=== PATIENT | male | born 1970 | race Caucasian/White ===

== ENCOUNTER 2019-11-01 11:31 | Outpatient (CLI) | payer BC, SELFPAY ==
--- NOTE | ~2019-11-01 | XR_ITS ---
EXAMINATION: XR hand LT min 3V DATE: 11/01/2019 11:50 INDICATION: Left hand pain. TECHNIQUE: 3 views of left hand were obtained. COMPARISON: Left hand radiographs 04/16/2017 FINDINGS: Bone alignment is normal. No fracture. There is mild osteoarthritis of first carpometacarpa l joint and first, second, and fourth metacarpophalangeal joints. There is mild osteoarthritis of mos t of the interphalangeal joints. There is severe osteoarthritis of third distal interphalangeal joint and moderate osteoarthritis of second distal interphalangeal joint. IMPRESSION: 1. Polyarticular osteoarthritis. Reviewed, dictated and finalized at location A.
== END 2019-11-01 11:32 | disposition home or self-care (01) ==
PROVIDERS: PCP Family Medicine; Visit Provider Family Medicine
DX: M79.642 Pain in left hand (principal); M79.645 Pain in left finger(s); M79.89 Other specified soft tissue disorders; M19.042 Primary osteoarthritis, left hand
CPT/HCPCS: 73130

== ENCOUNTER 2020-10-22 13:15 | Outpatient (CLI) | payer BC, SELFPAY ==
--- NOTE | ~2020-10-22 | XR_ITS ---
EXAMINATION: XR knee RT min 4V DATE: 10/22/2020 13:40 INDICATION: Right knee pain. TECHNIQUE: 4 views of right knee were obtained. COMPARISON: None. FINDINGS: There is varus angulation at the knee. No fracture. There is severe osteoarthritis of media l compartment, moderate osteoarthritis of patellofemoral compartment, and mild osteoarthritis of late ral compartment. No knee joint effusion. IMPRESSION: 1. Severe right knee osteoarthritis. Reviewed, dictated and finalized at location A.
--- NOTE | ~2020-10-22 | XR_ITS ---
EXAMINATION: XR knee LT min 4V DATE: 10/22/2020 13:39 INDICATION: Left knee pain. TECHNIQUE: 4 views of left knee were obtained. COMPARISON: None. FINDINGS: Bone alignment is normal. No fracture. There is severe osteoarthritis of medial compartment and mild osteoarthritis of lateral and patellofemoral compartments. No knee joint effusion. IMPRESSION: 1. Severe left knee osteoarthritis. Reviewed, dictated and finalized at location A.
== END 2020-10-22 13:16 | disposition home or self-care (01) ==
PROVIDERS: PCP Family Medicine; Visit Provider Family Medicine
DX: M25.561 Pain in right knee (principal); M25.562 Pain in left knee; M17.0 Bilateral primary osteoarthritis of knee
CPT/HCPCS: 73564

== ENCOUNTER 2020-11-02 13:06 | Outpatient (CLI) | payer BC, SELFPAY ==
--- NOTE | ~2020-11-02 | XR_ITS ---
EXAMINATION: XR lumbar spine 2-3V DATE: 11/02/2020 13:23 INDICATION: Low back pain. TECHNIQUE: 3 views of lumbar spine were obtained. COMPARISON: None. FINDINGS: There is 5 mm retrolisthesis of L3 on L4. There is mild chronic anterior wedging of T12 and L1 vertebral bodies. There are endplate osteophytes at all levels. There is mildly decreased disc he ight at L1-L2, L2-L3, and L3-L4. There is multilevel mild to moderate facet joint osteoarthritis. The re is severe facet joint osteoarthritis on the right at L5-S1. IMPRESSION: 1. Mild lumbar spondylosis. Reviewed, dictated and finalized at location B. IMPRESSION: 1. Mild lumbar spondylosis.
== END 2020-11-02 13:07 | disposition home or self-care (01) ==
LOC: ANHIMG 13:09
PROVIDERS: PCP Family Medicine; Visit Provider Physician Assistant
DX: M47.817 Spondylosis without myelopathy or radiculopathy, lumbosacral region (principal)
CPT/HCPCS: 72100

== ENCOUNTER → 2020-12-31 06:44 | Outpatient (CLI) | payer BC, SELFPAY ==
[2020-12-31 16:50] LABS: SARS-CoV-2 RNA PCR Negative
== END ==
PROVIDERS: PCP Family Medicine; Visit Provider Family Medicine
DX: Z78.9 Other specified health status (principal); Z20.822 Contact with and (suspected) exposure to COVID-19
CPT/HCPCS: C9803; U0003; U0005

== ENCOUNTER 2021-06-10 07:46 | Outpatient (CLI) | payer BC, SELFPAY ==
--- NOTE | ~2021-06-10 | MR_ITS ---
EXAMINATION: MR brain/brain stem wo/w con DATE: 06/10/2021 08:55 INDICATION: Worsening migraine headache. TECHNIQUE: Magnetic resonance imaging (MRI) of the brain and brainstem was performed without and with 20 mL MultiHance intravenous contrast. Sequences included sagittal and axial T1-weighted FSE, axial diffusion-weighted FS EPI, axial T2*-weighted GRE, axial T2-weighted FLAIR Propeller, and axial T2-we ighted Propeller. Postcontrast sequences included axial and coronal T1-weighted FSE. Apparent diffusi on coefficient (ADC) maps were created. COMPARISON: None. FINDINGS: There are scattered areas of nonspecific increased T2-weighted signal intensity in the cere bral white matter, which is within normal limits for the patient's age. There is no intracranial hemo rrhage, acute infarction, or abnormal intracranial mass lesion. The ventricles are normal in size. Th ere is mild mucosal thickening in the paranasal sinuses. The orbits are normal. The mastoid air cells are normal. IMPRESSION: 1. Normal aging brain. Reviewed, dictated and finalized at location A. 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 Normal aging brain.
[2021-06-10 08:24] LABS: Estimated Glomerular Filt Rate > 60
== END 2021-06-10 07:47 | disposition home or self-care (01) ==
LOC: ANHIMG 07:49
PROVIDERS: PCP Family Medicine; Visit Provider Physician Assistant
DX: G43.009 Migraine without aura, not intractable, without status migrainosus (principal)
CPT/HCPCS: 70553; A9577

== ENCOUNTER 2022-01-13 00:29 | Day surgery (SDC) | payer BC, SELFPAY ==
[2021-12-31 13:07] VITALS: BMI 27.7
[2022-01-13 06:50] VITALS: BP 135/94; PULSE 64; RESP 16; TEMP 36.6; O2SAT 100; BMI 27.8
[2022-01-13] MEDS: LACTATED RINGERS 1,000 ML 150 ML IV CONT (07:01)
--- NOTE | 2022-01-13 07:51 | WPDANESEPPF ---
Anes - Initial Pre Proc Eval Procedure: Operation Date: 01/13/22 08:00 Proposed Procedures p Screening Colonoscopy - Domenic Joe MD Date/Time: 01/13/22 07:51 Surgeon: Domenic Joe MD Pre Op Diagnosis: neoplasm screening Patient Data Age: 52 Gender: M Height: 1.88 m Weight: 98.4 kg Last Vital Signs Temp 36.6 C 01/13/22 06:50 Pulse 64 01/13/22 06:50 Resp 16 01/13/22 06:50 BP 135/94 H 01/13/22 06:50 Pulse Ox 100 01/13/22 06:50 O2 Del Method Room Air 01/13/22 06:50 Allergies Allergy/AdvReac Type Severity Reaction Status Date / Time No Known Allergies Allergy Mild Verified 01/13/22 06:48 Home Medications Medication Instructions Recorded Confirmed Type metronidazole 0.75 % topical gel 1 applic topical BID 05/20/19 01/13/22 History meloxicam 15 mg tablet See Rx Instructions .Route 08/12/21 01/13/22 Rx .COMPLEX #30 tabs omeprazole 20 mg capsule,delayed 20 mg PO DAILY #90 caps 09/19/21 01/13/22 Rx release tramadol 50 mg tablet 50 mg PO Q6H PRN pain #28 tabs 09/20/21 01/13/22 Rx trazodone 150 mg tablet 150 mg PO QHS #90 tabs 09/20/21 01/13/22 Rx rizatriptan 10 mg tablet See Rx Instructions PO .COMPLEX 12/31/21 01/13/22 History PRN Migraine Headache Patient hx anesthesia problems: none Family hx anesthesia problems: none Results Review: All pre-operative results and documents have been reviewed as part of the pre-operative evaluation. [facility] Past Medical History Medical History (Updated 01/13/22 @ 07:53 by Fredis Davis MD) Arthritis Gastro-esophageal reflux disease without esophagitis Hypercholesteremia Migraine without aura, not intractable, without status migrainosus Surgical History Surgical History History of appendectomy (~1989) History of hernia repair (~2016) History of hernia repair (~1991) History of knee surgery (~04/22/16) History of knee surgery (~04/22/15) Family History Family History Mother Family history of elevated blood lipids Family history of cardiovascular disease Family history of hypothyroidism Family history of atrial fibrillation Family history of thyroid disease Other Family history of hypercholesterolemia Social History Social History Alcohol intake: current Drinks per week: 12 Alcohol use details: 6-12 beers per week Living arrangements: with family Spiritual care concerns: No Anes - Eval Final PreProcedure Day of Procedure 01/13/22 07:51 Patient weight: overweight Heart: regular rate and rhythm Lungs: clear to auscultation and normal air movement Airway: Mallampati scale class II Neurological: alert and oriented Last oral intake: >/= 8 hours ASA classification: II Emergent: no Anesthetic plan: proceed Anesthesia type and monitoring: general GIVS Results Review: All pre-operative results and documents have been reviewed as part of the pre-operative evaluation. Informed Consent: The patient's anesthetic plan and its attendant risks and benefits were discussed with the patient/family/POA. Questions were solicited and answers provided to the satisfaction of the patient/family/POA.
--- NOTE | 2022-01-13 07:53 | PM.HPGS ---
History of Present Illness History of Present Illness Consent: Risks, benefits, and alternatives have been discussed and questions answered. Patient agrees to proceed with procedure. Chief complaint: neoplasm screening Narrative: Eamon Murray is a 52 year old male here for first screening colonoscopy Review of Systems Constitutional: Constitutional: Denies headache(s) and Denies weakness Eyes: Eyes: Denies blurry vision ENT: Reports Normal hearing present, Denies headache(s) and Denies neck pain Cardiovascular: Cardiovascular: Denies chest pain and Denies dyspnea Respiratory: Respiratory: Denies dyspnea Gastrointestinal: Gastrointestinal: Reports no additional gastrointestinal complaints Genitourinary: Genitourinary: Denies dysuria Musculoskeletal: Musculoskeletal: Denies neck pain Integumentary/Breasts: Skin/Breast: Denies dry skin Neurologic: Reports Normal hearing present, Denies headache(s) and Denies weakness Psychiatric: Psychiatric: Denies anxiety Endocrine: Endocrine: Denies change in body appearance Hematologic/Lymphatic: Hematologic/Lymphatic: Denies easy bleeding Allergic/Immunologic: Allergic/Immunologic: Denies urticaria PMFSH Past Medical History Medical History (Updated 01/13/22 @ 07:53 by Fredis Davis MD) Arthritis Gastro-esophageal reflux disease without esophagitis Hypercholesteremia Migraine without aura, not intractable, without status migrainosus Surgical History Surgical History History of appendectomy (~1989) History of hernia repair (~2016) History of hernia repair (~1991) History of knee surgery (~04/22/16) History of knee surgery (~04/22/15) Family History Family History Mother Family history of elevated blood lipids Family history of cardiovascular disease Family history of hypothyroidism Family history of atrial fibrillation Family history of thyroid disease Other Family history of hypercholesterolemia Social History Social History Alcohol intake: current Drinks per week: 12 Alcohol use details: 6-12 beers per week Living arrangements: with family Spiritual care concerns: No Meds Home Medications and Allergies Home Medications Medication Instructions Recorded Confirmed Type metronidazole 0.75 % topical gel 1 applic topical BID 05/20/19 01/13/22 History meloxicam 15 mg tablet See Rx Instructions .Route 08/12/21 01/13/22 Rx .COMPLEX #30 tabs omeprazole 20 mg capsule,delayed 20 mg PO DAILY #90 caps 09/19/21 01/13/22 Rx release tramadol 50 mg tablet 50 mg PO Q6H PRN pain #28 tabs 09/20/21 01/13/22 Rx trazodone 150 mg tablet 150 mg PO QHS #90 tabs 09/20/21 01/13/22 Rx rizatriptan 10 mg tablet See Rx Instructions PO .COMPLEX 12/31/21 01/13/22 History PRN Migraine Headache Allergies Allergy/AdvReac Type Severity Reaction Status Date / Time No Known Allergies Allergy Mild Verified 01/13/22 06:48 Vital Signs Vital Signs - 24 hr 01/13/22 06:50 Temperature 97.8 F Pulse Rate 64 Respiratory Rate 16 Blood Pressure 135/94 H Pulse Oximetry 100 Oxygen Delivery Room Air Exam Const: General: comfortable and no acute distress HENMT: General nose exam: Normal nares present Eyes: General: appearance normal, both eyes and all related structures Neck: Neck: no JVD Resp: Auscultation: clear to auscultation bilaterally Cardio: Rate: regular rate Rhythm: regular rhythm GI: Inspection: non-distended GI Palp: Yes Soft to palpation Skin: General skin exam: normal color Neuro: General: gait normal Speech: normal speech Extrem: General: normal to inspection Psych: Mental Status: mental status grossly normal Assessment and Plan Assessment and plan (1) Screening for colon cancer: Code(s): Z12.11 - Encounter for scre
[2022-01-13 08:22] VITALS: BP 106/69; PULSE 63; RESP 17; O2SAT 100
[2022-01-13 08:32] VITALS: BP 111/71; PULSE 62; RESP 18; O2SAT 100
[2022-01-13 08:42] VITALS: BP 122/81; PULSE 61; RESP 17; O2SAT 100
== END 2022-01-13 08:50 | disposition home or self-care (01) ==
PROVIDERS: PCP Family Medicine; Visit Provider Internal Medicine Gastroenterology
PROC: 0DJD8ZZ Inspection of Lower Intestinal Tract, Via Natural or Artificial Opening Endoscopic (ICD-10-PCS; CPT 45378; principal; 2022-01-13 08:00)
DX: Z12.11 Encounter for screening for malignant neoplasm of colon (principal); K64.8 Other hemorrhoids; M19.90 Unspecified osteoarthritis, unspecified site; K21.9 Gastro-esophageal reflux disease without esophagitis; E78.00 Pure hypercholesterolemia, unspecified
CPT/HCPCS: 45378; J2704; J7120

== ENCOUNTER 2022-04-25 10:13 | Observation (INO) | payer BC, SELFPAY ==
--- NOTE | ~2022-04-25 | CT_ITS ---
EXAMINATION: CT abdomen pelvis w con DATE: 04/25/2022 13:16 INDICATION: Generalized abdominal pain. Diarrhea. TECHNIQUE: Computed tomography (CT) of the abdomen and pelvis was performed with 100 mL Omnipaque 350 intravenous contrast. Automated exposure control and iterative reconstruction technique were employe d. The dose-length product was 668.72 mGy-cm. COMPARISON: None. FINDINGS: The visualized portions of the lung bases demonstrate mild atelectasis. No pleural effusion . The heart size is normal. No pericardial effusion. The liver, gallbladder, spleen, pancreas, adrena l glands, and kidneys are normal. The prostate is moderately enlarged. The appendix is not visualized . There are multiple dilated loops of small bowel without focal transition point. There are surgical changes of right inguinal hernia repair. There are no pathologically enlarged lymph nodes. There is p hysiologic fluid in the pelvis. There is mild thoracolumbar spondylosis. IMPRESSION: 1. Dilated small bowel without focal transition point, likely adynamic ileus. Reviewed, dictated and finalized at location A.
[2022-04-25 10:24] VITALS: BP 130/78; PULSE 95; RESP 16; TEMP 36.6; O2SAT 99
[2022-04-25 10:40] LABS: Basophils Percent Auto 0.4 % (0.2-1.2); Eosinophils Absolute Auto 0.2 K/mm3 (0-0.3); Eosinophils Percent Auto 3.7 % (0-4.4); Hematocrit 45.1 % (42.0-52.0); Hemoglobin 14.1 g/dL (14.0-18.0); Immature Granulocyte Absolute 0.01 K/mm3 (0.00-0.031); Immature Granulocyte Percent A 0.2 % (0-0.5); Lymphocytes Absolute Auto 0.68 K/mm3 (0.9-3.2); Lymphocytes Percent Auto 13.8 % (18.3-44.2); Mean Corpuscular HGB Conc 31.3 g/dl (32-36); Mean Corpuscular Volume 80.1 fl (80-100); Mean Platelet Volume 8.9 fl (7.4-10.4); Monocytes Absolute Auto 0.7 K/mm3 (0.1-0.6); Monocytes Percent Auto 13.2 % (2.6-8.5); Neutrophils Absolute Auto 3.4 K/mm3 (1.3-6.7); Neutrophils Percent Auto 68.7 % (45.5-73.1); Platelet Count Result 184 k/mm3 (150-375); Red Blood Count 5.63 M/mm3 (4.6-6.20); White Blood Count 4.9 K/mm3 (4.5-10.0)
[2022-04-25 10:44] LABS: Appearance Urine Clear (Clear); Bilirubin Urine 1+ (Negative); Blood Urine Negative (Negative); Color Urine Yellow (Yellow); Glucose Urine UA Negative (Negative); Ketones Urine 1+ mg/dL (Negative); Leukocyte Esterase Ur Negative LEU/UL (Negative); Nitrate Urine Negative (Negative); Protein Urine 1+ mg/dL (Negative); Specific Grav Ur 1.025 (1.001-1.035); Urobilinogen Urine 0.2 mg/dL (<2.0)
[2022-04-25 10:46] LABS: Add Urine Microscopic? YES
[2022-04-25 10:53] LABS: WBC Urine 0-3 /hpf (0-3)
[2022-04-25 10:58] LABS: RBC Urine 0-2 /hpf (0-2)
[2022-04-25 11:00] LABS: Mucus Urine Heavy /lpf
[2022-04-25 11:01] LABS: Squamous Epithelial Cell Urine Occasional /hpf (Few)
[2022-04-25 11:02] LABS: Alanine Aminotransferase 21 U/L (6-50); Albumin Level 4.4 g/dL (3.5-5.1); Alkaline Phosphatase 82 U/L (38-126); Anion Gap 11 mmol/L (8-16); Aspartate Amino Transferase 29 U/L (17-59); Bilirubin,Total 0.9 mg/dL (0.2-1.3); Blood Urea Nitrogen 15 mg/dL (9-20); Calcium 8.9 mg/dL (8.4-10.2); Carbon Dioxide 27 mmol/L (22-30); Chloride 100 mmol/L (98-107); Estimated CRCL calculation 83 ml/min; Estimated Glomerular Filt Rate > 60; Glucose 101 mg/dL (65-110); Lipase 51 U/L (23-300); Potassium 4.2 mmol/L (3.4-5.0); Sodium 138 mmol/L (137-145)
--- NOTE | 2022-04-25 12:57 | ED.GENADULT ---
HPI - General Adult General Chief complaint: Abdominal Pain Stated complaint: diarrhea, abd pain Time Seen by Provider: 04/25/22 11:20 History of Present Illness HPI narrative: This is a 52-year-old male presenting ED with chief complaint of abdominal pain. Patient states that pain started on Thursday. He describes as a diffuse sharp pain senna 10 intensity and comes and goes. He says he felt pain like this before when his appendix had ruptured he required a surgical cleanout. There are no exacerbating relieving factors. Patient has had multiple episodes of nonbloody diarrhea per day. He denies fever, chills, urinary symptoms, chest pain. Patient did take a recent course of antibiotics, Keflex, for a soft tissue infection. Related Data Home Medications Medication Instructions Recorded Confirmed metronidazole 0.75 % topical gel 1 applic topical BID 05/20/19 04/23/22 rizatriptan 10 mg tablet See Rx Instructions PO .COMPLEX 12/31/21 04/23/22 PRN Migraine Headache Allergies Allergy/AdvReac Type Severity Reaction Status Date / Time No Known Allergies Allergy Mild Verified 04/25/22 11:30 Review of Systems Review of Systems: CONSTITUTIONAL: Denies night sweats. EYES: No eye pain ENT: Denies rhinorrhea CARDIOVASCULAR: Denies palpitations RESPIRATORY: Denies hemoptysis GASTROINTESTINAL: Denies hematemesis GENITOURINARY: Denies hematuria. SKIN: Denies rash MUSCULOSKELETAL: Denies myalgia. NEUROLOGIC: Denies weakness. PSYCHIATRIC: Denies delusions PMFSH Past Medical History Medical History Arthritis Gastro-esophageal reflux disease without esophagitis Hypercholesteremia Migraine without aura, not intractable, without status migrainosus Surgical History Surgical History History of appendectomy (~1989) History of hernia repair (~2016) History of hernia repair (~1991) History of knee surgery (~04/22/16) History of knee surgery (~04/22/15) Family History Family History Mother Family history of elevated blood lipids Family history of cardiovascular disease Family history of hypothyroidism Family history of atrial fibrillation Family history of thyroid disease Other Family history of hypercholesterolemia Social History Social History Smoking status: Never smoker Alcohol intake: current Drinks per week: 12 Alcohol use details: 6-12 beers per week Has the Lack of Transportation Kept You From Medical Appointments or From Getting Medications?: No Within the Past 12 Months, Were You Worried Whether Your Food Would Run Out Before You Got Money to Buy More?: Never True What is Your Housing Situation Today?: I Have Housing Are You Worried That in the Next 2 Months, You May Not Have Your Own Housing to Live In?: No Do You Have Trouble Paying Your Heating Or Electricity Bill?: No Do You Have Trouble Paying For Medicines?: No Are You Currently Unemployed and Looking for Work?: No Highest Level of Education Completed: Bachelor's Degree Do You Have Trouble With Childcare or the Care of a Family Member?: No Spiritual care concerns: No Exam Narrative: APPEARANCE: No apparent distress. Head atraumatic. EYES: PERRLA/EOMI, NOSE: Normal no drainage NECK: Supple, Trachea midline RESPIRATORY: CTAB, No increased work of breathing. CARDIOVASCULAR: S1S2 appreciated ABDOMINAL: abdomen is soft with diffuse tenderness, well-healed surgical scars over the abdomen. MUSCULOSKELETAl: No obvious deformities NEURO: Alert. Moving 4/4 extremities SKIN:: Warm, dry. Normal color PSYCHIATRIC: Normal affect Course Vital Signs Vital signs: Vital Signs Temperature 97.8 F 04/25/22 10:24 Pulse Rate 95 04/25/22 10:24 Respiratory Rate 16 04/25/22 10:24 Blood Pressure 130/78
[2022-04-25 13:32] VITALS: O2SAT 90
[2022-04-25 13:33] VITALS: BP 126/70; PULSE 83; RESP 18; O2SAT 97
[2022-04-25] MEDS: SODIUM CHLORIDE 0.9% IV 2,000 ML 999 ML IV CONT (15:31)
[2022-04-25] MEDS: HYDROmorphone HCL INJ (*CRX) 1 MG/ML SYR 0.5 MG IV PUSH (15:31)
[2022-04-25 15:34] VITALS: BP 126/81; PULSE 82; RESP 14; O2SAT 98
[2022-04-25] MEDS: metroNIDAZOLE 500 MG/ISO 100ML 500 MG/100 ML BAG 100 MG IVPB (15:51)
--- NOTE | 2022-04-25 16:25 | WPDGICN ---
Assessment and Plan Assessment and plan (1) Severe diarrhea: Code(s): K52.9 - Noninfective gastroenteritis and colitis, unspecified Status: Acute Assessment and Plan: stool has been sent for C difficile toxin. Results are not yet in the record. Given the fact that this diarrhea began after 12 days of oral antibiotics, I think that C difficile colitis would be the most likely etiology. Surprisingly, the CT scan does not show colitis. He should be hospitalized for rehydration. Resting his got will help with his abdominal pain. (2) Skin infection: Code(s): L08.9 - Local infection of the skin and subcutaneous tissue, unspecified Status: Acute Assessment and Plan: After cryotherapy for skin lesions, he developed infection in 2 of them. He took Keflex for a total of 12 days. (3) Adynamic ileus: Code(s): K56.0 - Paralytic ileus Status: Acute Assessment and Plan: The only significant finding on CT scan is suggestion of ileus. Because he has active bowel sounds, I do not think he has an ileus. I think we can try him on clear liquids. GI Consult Note Consult date/time: 04/25/22 16:25 HPI: Eamon Murray is a 52 year old male who presents to the emergency room with severe watery diarrhea. He states that he developed diarrhea Thursday evening, having 4 loose stools within an hour. He had 6 more during the night and 5 more the next morning. He continues to have severe watery diarrhea. There has been no blood in his stools. He has been getting pains in his abdomen since Thursday evening. At times it is so tight and severe that it feels like when he had appendicitis. He has been running a fever, up to 101.4. He has not had chills. He has had some nausea and has been afraid to eat but not vomiting. He is just finishing a 2 week course of antibiotics for skin infection. He had cryotherapy of skin lesions about 3 weeks ago. He noticed drainage from 2 of them, 1 on his cheek and 1 on his thigh. After 7 days of Keflex the drainage persisted and the prescription was refilled. He will have finish it today, but when he developed diarrhea and he called his primary care physician on Thursday he was told to discontinue it. A stool specimen was sent for C difficile toxin. It looks as though it is still pending but ER physician told me that was negative. He has no history of chronic gastrointestinal problems. He in fact just had a colonoscopy by Dr. Negrete a couple of months ago. Was negative. He has had no problems with eating in the past. He did not lose 14 lb just since the diarrhea began 3 days ago. Review of Systems Review of Systems: All systems reviewed & are unremarkable except as noted in HPI and below PMFSH Past Medical History Medical History Arthritis Gastro-esophageal reflux disease without esophagitis Hypercholesteremia Migraine without aura, not intractable, without status migrainosus Surgical History Surgical History History of appendectomy (~1989) History of hernia repair (~2016) History of hernia repair (~1991) History of knee surgery (~04/22/16) History of knee surgery (~04/22/15) Family History Family History Mother Family history of elevated blood lipids Family history of cardiovascular disease Family history of hypothyroidism Family history of atrial fibrillation Family history of thyroid disease Other Family history of hypercholesterolemia Social History Social History Smoking status: Never smoker Alcohol intake: current Drinks per week: 12 Alcohol use details: 6-12 beers per week Has the Lack of Transportation Kept You From Medical Appointments or From Getting Medications?: No Within the Past 12 Mon
[2022-04-25] MEDS: LACTATED RINGERS 1,000 ML 125 ML IV CONT (17:39)
[2022-04-25 18:10] VITALS: BP 118/80; PULSE 64; RESP 14; TEMP 36.7; O2SAT 100; BMI 28.3
--- NOTE | 2022-04-25 18:12 | ADMGEN ---
This patient, Eamon Murray, was admitted to 2 Medical Room 241-01. Patient/family oriented to hospital policies and general routines including ID bracelet, bed and alarms, visiting hours, pain management, procedures, bathroom and other care routines, personal items, smoking policy, room service/diet, and visiting hours. Information on how to activate the Rapid Response Team has been discussed. Patient/Family are encouraged to report perceived risks to care and to ask questions if they do not understand what they are told or what they should do.
[2022-04-25 19:55] LABS: Toxigenic C. Diff POSITIVE (NEGATIVE)
--- NOTE | 2022-04-25 19:55 | PC.NURSE ---
lab called pt c-diff + informed Dori WHITMORE provider. C-diff isolation started now.
--- NOTE | 2022-04-25 20:28 | PC.NURSE ---
jose Meadows NP pt requiring pain medication.
[2022-04-25] MEDS: traMADol HCL (*CRX) 25 MG TABLET PO (20:55)
--- NOTE | 2022-04-25 21:07 | PC.NURSE ---
informed Dori [facility] INFORMATION SPECIALIST pt tested c. diff + pt to stated Flagyl and PO vancomycin Dori to see pt and place orders.
[2022-04-25 21:46] VITALS: BP 122/75; PULSE 62; RESP 21; TEMP 36.2; O2SAT 100
[2022-04-25] MEDS: traZODone HCL 50 MG TABLET 150 MG PO (21:52)
[2022-04-25] MEDS: traMADol HCL (*CRX) 50 MG TABLET PO (23:09)
--- NOTE | 2022-04-25 23:10 | PC.NURSE ---
pt reported liquid watery stool starting again, abt started for + c.diff sample this shift.
--- NOTE | 2022-04-25 23:56 | PC.NURSE ---
Dori DIRECTOR OF EMERGENCY NURSING to place Bentyl order r/t pt abdominal pain
[2022-04-26] MEDS: metroNIDAZOLE 500 MG/ISO 100ML 500 MG/100 ML BAG 100 MG IVPB (00:22)
[2022-04-26] MEDS: VANCOMYCIN ORAL 125 MG/2.5 ML SYRUP PO ×4 (00:22→18:59)
--- NOTE | 2022-04-26 00:49 | PM.IMHP ---
H&P: HPI History of Present Illness Date/Time: 04/25/22 2300 Chief Complaint: Abdominal pain Narrative: this is a 52-year-old male patient who has a complaint of abdominal pain. The patient stated that the pain started on Thursday stated that it was a sharp pain with a 10/10 intensity that comes and goes. He says that he felt pain like this before when his appendix ruptured many years ago. There was no exacerbating or relieving factors. The patient had multiple episodes of nonbloody diarrhea each day. The patient stated that he had a recent course of antibiotics due to soft tissue infection he had completed that and then got another weeks worth of Keflex. The patient stated that he had some skin lesions removed in the became infected that is why he was on the Keflex. GI was consulted. Abdominal pelvis CT was read as dilated small bowel without focal transition point likely adynamic ileus. Stools cultures were obtained and the patient was found to be positive for C diff. Patient had no white count. The patient was started on IV fluids. He was given Flagyl, tramadol and Dilaudid in the Emergency room. The patient is being admitted to observation status on the date of service of 04/26/2022. Review of Systems Review of Systems: All systems reviewed & are unremarkable except as noted in HPI and below Constitutional: Constitutional: Reports as per HPI and Reports no additional constitutional complaints Eyes: Eyes: Reports as per HPI and Reports no additional eye complaints ENT: Reports system reviewed and no additional complaints, except as documented and Reports Normal hearing present Cardiovascular: Cardiovascular: Reports no additional cardiovascular complaints Respiratory: Respiratory: Reports no additional respiratory complaints and Reports no additional respiratory complaints Gastrointestinal: Gastrointestinal: Reports as per HPI and Reports no additional gastrointestinal complaints Musculoskeletal: Musculoskeletal: Reports no additional musculoskeletal complaints Integumentary/Breasts: Skin/Breast: Reports system reviewed and no additional complaints, except as docu and Reports as per HPI Neurologic: Reports system reviewed and no additional complaints, except as documented, Reports as per HPI and Reports Normal hearing present Psychiatric: Psychiatric: Reports no additional psychiatric complaints and Reports as per HPI Endocrine: Endocrine: Reports no additional endocrine complaints Hematologic/Lymphatic: Hematologic/Lymphatic: Reports no additional hematologic/lymphatic complaints Allergic/Immunologic: Allergic/Immunologic: Reports no additional allergic/immunologic complaints [facility] Past Medical History Medical History (Updated 04/26/22 @ 00:59 by Dori Ortiz NP) Allergic rhinitis due to pollen Arthritis Encounter to vaccinate patient Gastro-esophageal reflux disease without esophagitis Knee pain, bilateral longterm use of drug longterm use of drug Low back pain Migraine without aura, not intractable, without status migrainosus Pain of left middle finger Screening for colon cancer Screening for prostate cancer Skin infection Surgical History Surgical History (Updated 04/26/22 @ 00:55 by Dori Ortiz NP) History of appendectomy (~1989) History of hernia repair (~2016) He had a total of 3 hernia repairs History of hernia repair (~1991) History of knee surgery (~04/22/16) History of knee surgery (~04/22/15) Family History Family History Mother Family history of elevated blood lipids Family history of cardiovascular disease Family history of hypothyroidism Family history of atrial fibrillation Family history of thyroid disease Other Family history of hypercholesterolemia Social History Social History (Updated 04/26/22 @ 00:56 by Dori Ortiz NP) Social History: the patient lives with his and they have 3 c
[2022-04-26] MEDS: LACTATED RINGERS 1,000 ML 125 ML IV CONT ×2 (01:44→10:34)
[2022-04-26] MEDS: DICYCLOMINE HCL 10 MG CAPSULE 20 MG PO ×2 (04:57→13:21)
[2022-04-26] MEDS: traMADol HCL (*CRX) 50 MG TABLET PO ×2 (04:57→13:21)
[2022-04-26 06:00] VITALS: BP 119/59; PULSE 57; RESP 18; TEMP 36.6; O2SAT 97
[2022-04-26 07:54] LABS: Basophils Percent Auto 0.6 % (0.2-1.2); Eosinophils Absolute Auto 0.3 K/mm3 (0-0.3); Eosinophils Percent Auto 7.9 % (0-4.4); Hematocrit 39.1 % (42.0-52.0); Hemoglobin 12.1 g/dL (14.0-18.0); Lymphocytes Absolute Auto 0.61 K/mm3 (0.9-3.2); Lymphocytes Percent Auto 18.5 % (18.3-44.2); Mean Corpuscular HGB Conc 30.9 g/dl (32-36); Mean Corpuscular Hemoglobin 24.7 pg (26-34); Mean Corpuscular Volume 79.8 fl (80-100); Mean Platelet Volume 9.3 fl (7.4-10.4); Monocytes Absolute Auto 0.4 K/mm3 (0.1-0.6); Monocytes Percent Auto 12.7 % (2.6-8.5); Neutrophils Percent Auto 60.3 % (45.5-73.1); Platelet Count Result 160 k/mm3 (150-375); Red Cell Distribution Width 16.3 % (11.5-14.5); White Blood Count 3.3 K/mm3 (4.5-10.0)
[2022-04-26 08:09] LABS: Alanine Aminotransferase 18 U/L (6-50); Albumin Level 3.6 g/dL (3.5-5.1); Alkaline Phosphatase 54 U/L (38-126); Anion Gap 8 mmol/L (8-16); Aspartate Amino Transferase 24 U/L (17-59); Bilirubin,Total 1.3 mg/dL (0.2-1.3); Blood Urea Nitrogen 12 mg/dL (9-20); Calcium 8.1 mg/dL (8.4-10.2); Carbon Dioxide 26 mmol/L (22-30); Chloride 101 mmol/L (98-107); Estimated CRCL calculation 100 ml/min; Estimated Glomerular Filt Rate > 60; Glucose 78 mg/dL (65-110); Potassium 3.9 mmol/L (3.4-5.0); Sodium 135 mmol/L (137-145)
--- NOTE | 2022-04-26 09:15 | PM.IMPN ---
Progress Note: A&P Assessment and Plan (1) C. difficile diarrhea: Code(s): A04.72 - Enterocolitis due to Clostridium difficile, not specified as recurrent Status: Acute Assessment and Plan: Presented with abdominal pain Started on oral vanco, DC IV flagyl Probiotic added GI consulted thank you for your help diet advanced to full liquids CT of the abd/pel: indicated ileus, exam does not correlate C. diff was positive Isolation precautions WBC 3.3 Stop fluids as he is eating a drinking (2) Gastro-esophageal reflux disease without esophagitis: Code(s): K21.9 - Gastro-esophageal reflux disease without esophagitis Status: Acute Assessment and Plan: continue with pantoprazole (3) Migraine without aura, not intractable, without status migrainosus: Code(s): G43.009 - Migraine without aura, not intractable, without status migrainosus Status: Acute Assessment and Plan: continue with Mobic and rizatriptan Controlled adjust therapy if indicated Time Spent With Patient Time with patient: Greater than 35 minutes Subjective Date/time seen: 04/26/22914 Interval history: 04/26/22914 patient was lying in bed. Patient's brother was present. Patient denies any acute issues including chest pain, shortness a breath, nausea, vomiting, constipation. Patient did state that he had about 4 bouts of diarrhea today. He did state that he was feeling better. He also stated that he was still having the abdominal cramping however it has been better with the Bentyl. diet has been advanced to full liquids. 04/25/22? 2300 ?this is a 52-year-old male patient who has a complaint of abdominal pain.? The patient stated that the pain started on Thursday stated that it was a sharp pain with a 10/10 intensity that comes and goes.? He says that he felt pain like this before when his appendix ruptured many years ago.? There was no exacerbating or relieving factors.? The patient had multiple episodes of nonbloody diarrhea each day.? The patient stated that he had a recent course of antibiotics due to soft tissue infection he had completed that and then got another weeks? worth of Keflex.? The patient stated that he had some skin lesions removed in the became infected that is why? he was on the Keflex.? GI was consulted.? Abdominal pelvis CT was read as dilated small bowel without focal transition point likely adynamic ileus.? Stools cultures were obtained and the patient was found to be positive for C diff. ? Patient had no white count.? The patient was started on IV fluids.? He was given Flagyl, tramadol and Dilaudid in the ? Emergency room.? The patient is being admitted to observation status on the date of service of 04/26/2022. Review of Systems Review of Systems: All systems reviewed & are unremarkable except as noted in HPI and below Exam Narrative: Const:General: cooperative, healthy appearing, comfortable, no acute distress, well developed, alert, awake, Physically active, average body habitus and well nourished? Nutritional Appearance: average body habitus and well nourished? Orientation/consciousness: oriented to person, oriented to place, oriented to time and patient oriented x3? Limitations: no limitations HENMT:Head: normal to inspection, No palpable skull fracture present, normocephalic and atraumatic? Ears: hearing grossly normal bilaterally and external ears normal? Face/Nose/Sinus: Normal external nose present and Normal nares present Eyes:General: appearance normal, both eyes and all related structures? Alignment and Position: alignment normal? Periorbital: periorbital findings normal? Eyelids: eyelids normal? Pupils: Equal, round and reactive pupils present? EOM: EOMs intact bilaterally Neck:Neck: normal visual inspection, full ROM, no lymphadenopathy, trachea midline and supple? Thyroid: thyroid normal? Carotids: normal carotid upstroke? Lymp
--- NOTE | 2022-04-26 09:57 | WPDGIPROGNO ---
Progress Note: A&P Assessment and Plan (1) C. difficile diarrhea: Code(s): A04.72 - Enterocolitis due to Clostridium difficile, not specified as recurrent Status: Acute Assessment and Plan: Patient with C difficile diarrhea. Now on oral vancomycin. Anticipated 10 day course of antibiotics. I agree with supplemental Questran for assistance with controlling diarrhea. I would advised patient to try probiotic should he require antibiotics in the future. Patient instructed to watch for signs of relapse after completing course of antibiotics. Planned increase diet slowly. Subjective Date/time seen: 04/26/22 09:57 Patient alert comfortable this morning. Continues to report rather significant diarrhea stool. Stool cultures have confirmed C difficile infection. Review of Systems Review of Systems: Review of systems noncontributory. Exam Narrative: Physical exam reveals patient comfortable at rest. Sitting in bed. Vital signs stable. HEENT exam reveals no icterus. Lungs are clear. Heart without murmur. Abdomen bowel sounds present soft minimal tenderness. Objective Data Vital Signs Vital Signs: Vital Signs - 24 hr 04/25/22 10:24 04/25/22 13:32 04/25/22 13:33 Temperature 97.8 F Pulse Rate 95 83 Respiratory Rate 16 18 Blood Pressure 130/78 126/70 Pulse Oximetry 99 90 97 Oxygen Delivery Room Air 04/25/22 15:34 04/25/22 18:10 04/25/22 18:45 Temperature 98.0 F Pulse Rate 82 64 Respiratory Rate 14 14 Blood Pressure 126/81 118/80 Pulse Oximetry 98 100 Oxygen Delivery Room Air 04/25/22 20:00 04/25/22 21:46 04/26/22 06:00 Temperature 97.1 F L 97.8 F Pulse Rate 62 57 L Respiratory Rate 21 H 18 Blood Pressure 122/75 119/59 L Pulse Oximetry 100 97 Oxygen Delivery Room Air Intake/Output Intake/Output: Intake & Output 04/23/22 04/24/22 04/25/22 04/26/22 23:59 23:59 23:59 23:59 Intake Total 100 1100 Output Total 4 Balance 100 1096 Meds/Results Medications: Active Medications Generic Name Dose Route Start Last Admin Trade Name Freq PRN Reason Stop Dose Admin Cholestyramine Resin 4 gm 04/26/22 10:00 Cholestyramine (W/ Sugar) 4 Gm Powd.Pack PO QID RXN TONY Dicyclomine HCl 20 mg 11/05/22 00:52 04/26/22 04:57 Dicyclomine Hcl 10 Mg Capsule PO 20 mg QID PRN Administration Abdominal Cramping Lactated Ringer's 1,000 mls @ 125 mls/hr 04/25/22 15:35 04/26/22 01:44 Lr - Lactated Ringers Iv IV CONT 125 mls/hr .Q8H TONY Administration Meloxicam 15 mg 04/26/22 09:00 Meloxicam 7.5 Mg Tablet PO QAM [facility] Pantoprazole Sodium 40 mg 04/26/22 09:00 Pantoprazole 40 Mg Tablet PO QAM [facility] Rizatriptan Benzoate 10 mg 04/25/22 21:12 Rizatriptan Benzoate 10 Mg Tablet PO DAILY PRN Migraine Headache Tramadol HCl 50 mg 04/25/22 21:12 04/26/22 04:57 Tramadol Hcl (*Crx) 50 Mg Tablet PO 50 mg Q6H PRN Administration Pain Trazodone HCl 150 mg 04/25/22 21:35 04/25/22 21:52 Trazodone Hcl 50 Mg Tablet PO 150 mg QHS TONY Administration Vancomycin HCl 125 mg 04/26/22 00:00 04/26/22 04:57 Vancomycin Oral 125 Mg/2.5 Ml Syrup PO 05/06/22 00:00 125 mg Q6HR TONY Administration Radiology Results: ITS Impressions Abdomen/Pelvis CT 04/25/22 13:19 IMPRESSION: 1. Dilated small bowel without focal transition point, likely adynamic ileus. Labs Labs: Laboratory Results - last 24 hr 04/25/22 04/25/22 04/25/22 10:23 10:23 10:23 WBC 4.9 RBC 5.63 Hgb 14.1 Hct 45.1 MCV 80.1 MCH 25.0 L MCHC 31.3 L RDW 17.0 H Plt Count 184 MPV 8.9 Immature Gran % (Auto) 0.2 Neut % (Auto) 68.7 Lymph % (Auto) 13.8 L [place] % (Auto) 13.2 H Eos % (Auto) 3.7 Baso % (Auto) 0.4 Lymph # (Auto) 0.68 L [place] # (Auto) 0.7 H Eos # (Auto) 0.2 Baso # (Auto) 0.0 Abs Immat Gran (auto) 0.01 Absolute Neuts (auto) 3.
[2022-04-26] MEDS: CHOLESTYRAMINE (W/ SUGAR) 4 GM POWD.PACK PO ×4 (10:16→23:14)
[2022-04-26] MEDS: MELOXICAM 7.5 MG TABLET 15 MG PO (10:16)
[2022-04-26] MEDS: PANTOPRAZOLE 40 MG TABLET PO (10:16)
[2022-04-26 14:00] VITALS: BP 126/65; PULSE 59; RESP 14; TEMP 36.5; O2SAT 96
[2022-04-26] MEDS: traZODone HCL 50 MG TABLET 150 MG PO (20:06)
[2022-04-26 22:00] VITALS: BP 132/69; PULSE 63; RESP 18; TEMP 36.3; O2SAT 97
[2022-04-27] MEDS: VANCOMYCIN ORAL 125 MG/2.5 ML SYRUP PO ×3 (00:24→13:15)
[2022-04-27 06:00] VITALS: BP 120/69; PULSE 58; RESP 18; TEMP 36.2; O2SAT 96
[2022-04-27 06:35] LABS: Basophils Percent Auto 0.9 % (0.2-1.2); Eosinophils Absolute Auto 0.2 K/mm3 (0-0.3); Eosinophils Percent Auto 8.6 % (0-4.4); Hematocrit 39.9 % (42.0-52.0); Hemoglobin 12.2 g/dL (14.0-18.0); Immature Granulocyte Absolute 0.01 K/mm3 (0.00-0.031); Immature Granulocyte Percent A 0.4 % (0-0.5); Lymphocytes Absolute Auto 0.65 K/mm3 (0.9-3.2); Mean Corpuscular HGB Conc 30.6 g/dl (32-36); Mean Corpuscular Hemoglobin 24.6 pg (26-34); Mean Corpuscular Volume 80.6 fl (80-100); Mean Platelet Volume 9.5 fl (7.4-10.4); Monocytes Absolute Auto 0.4 K/mm3 (0.1-0.6); Monocytes Percent Auto 15.1 % (2.6-8.5); Neutrophils Absolute Auto 1.1 K/mm3 (1.3-6.7); Platelet Count Result 185 k/mm3 (150-375); Red Blood Count 4.95 M/mm3 (4.6-6.20); Red Cell Distribution Width 16.2 % (11.5-14.5); White Blood Count 2.3 K/mm3 (4.5-10.0)
[2022-04-27 06:52] LABS: Lactic Acid Reflex 0.7 mmol/L (0.7-2.0)
[2022-04-27 06:55] LABS: Alanine Aminotransferase 16 U/L (6-50); Albumin Level 3.7 g/dL (3.5-5.1); Alkaline Phosphatase 48 U/L (38-126); Anion Gap 13 mmol/L (8-16); Aspartate Amino Transferase 25 U/L (17-59); Bilirubin,Total 0.9 mg/dL (0.2-1.3); Blood Urea Nitrogen 8 mg/dL (9-20); Calcium 8.3 mg/dL (8.4-10.2); Carbon Dioxide 29 mmol/L (22-30); Chloride 99 mmol/L (98-107); Estimated CRCL calculation 100 ml/min; Estimated Glomerular Filt Rate > 60; Glucose 88 mg/dL (65-110); Magnesium 2.1 mg/dL (1.6-2.3); Potassium 3.7 mmol/L (3.4-5.0); Sodium 141 mmol/L (137-145)
--- NOTE | 2022-04-27 08:09 | WPDGIPROGNO ---
Progress Note: A&P Assessment and Plan (1) C. difficile diarrhea: Code(s): A04.72 - Enterocolitis due to Clostridium difficile, not specified as recurrent Status: Acute Assessment and Plan: Patient with diarrhea secondary C difficile infection. Plan to complete 10 day course of oral vancomycin after discharge. Questran supplementation may be beneficial to limit diarrhea. I have advised patient to consider probiotics concomitant Katja with any future antibiotics. Will advance to regular diet today. Discharge if diarrhea tolerable and no longer requiring IV fluids. Subjective Date/time seen: 04/27/22 08:09 Patient alert comfortable this morning. He reports the diarrhea has lessened to a great deal. Now on oral vancomycin for C diff infection. Review of Systems Review of Systems: Review of systems noncontributory. Exam Narrative: Physical exam reveals patient be alert. Vital signs stable. HEENT exam is unremarkable. Patient anicteric. Lungs are clear. Heart without murmur. Abdomen soft and nontender. Objective Data Vital Signs Vital Signs: Vital Signs - 24 hr 04/26/22 10:15 04/26/22 14:00 04/26/22 22:00 Temperature 97.7 F 97.3 F L Pulse Rate 59 L 63 Respiratory Rate 14 18 Blood Pressure 126/65 132/69 Pulse Oximetry 96 97 Oxygen Delivery Room Air 04/27/22 06:00 Temperature 97.1 F L Pulse Rate 58 L Respiratory Rate 18 Blood Pressure 120/69 Pulse Oximetry 96 Oxygen Delivery Intake/Output Intake/Output: Intake & Output 04/24/22 04/25/22 04/26/22 04/27/22 23:59 23:59 23:59 22:59 Intake Total 100 4930 500 Output Total 12 Balance 100 4918 500 Meds/Results Medications: Active Medications Generic Name Dose Route Start Last Admin Trade Name Freq PRN Reason Stop Dose Admin Cholestyramine Resin 4 gm 04/26/22 10:00 04/26/22 23:14 Cholestyramine (W/ Sugar) 4 Gm Powd.Pack PO 4 gm QID RXN TONY Administration Dicyclomine HCl 20 mg 04/26/22 00:52 04/26/22 13:21 Dicyclomine Hcl 10 Mg Capsule PO 20 mg QID PRN Administration Abdominal Cramping Meloxicam 15 mg 04/26/22 09:00 04/26/22 10:16 Meloxicam 7.5 Mg Tablet PO 15 mg QAM TONY Administration Pantoprazole Sodium 40 mg 04/26/22 09:00 04/26/22 10:16 Pantoprazole 40 Mg Tablet PO 40 mg QAM TONY Administration Rizatriptan Benzoate 10 mg 04/25/22 21:12 Rizatriptan Benzoate 10 Mg Tablet PO DAILY PRN Migraine Headache Tramadol HCl 50 mg 04/25/22 21:12 04/26/22 13:21 Tramadol Hcl (*Crx) 50 Mg Tablet PO 50 mg Q6H PRN Administration Pain Trazodone HCl 150 mg 04/25/22 21:35 04/26/22 20:06 Trazodone Hcl 50 Mg Tablet PO 150 mg QHS TONY Administration Vancomycin HCl 125 mg 04/26/22 00:00 04/27/22 05:32 Vancomycin Oral 125 Mg/2.5 Ml Syrup PO 05/06/22 00:00 125 mg Q6HR TONY Administration Radiology Results: ITS Impressions Abdomen/Pelvis CT 04/25/22 13:19 IMPRESSION: 1. Dilated small bowel without focal transition point, likely adynamic ileus. Labs Labs: Laboratory Results - last 24 hr 04/27/22 04/27/22 04/27/22 05:39 05:39 05:39 WBC 2.3 L RBC 4.95 Hgb 12.2 L Hct 39.9 L MCV 80.6 MCH 24.6 L MCHC 30.6 L RDW 16.2 H Plt Count 185 MPV 9.5 Immature Gran % (Auto) 0.4 Neut % (Auto) 47.0 Lymph % (Auto) 28.0 [place] % (Auto) 15.1 H Eos % (Auto) 8.6 H Baso % (Auto) 0.9 Lymph # (Auto) 0.65 L [place] # (Auto) 0.4 Eos # (Auto) 0.2 Baso # (Auto) 0.0 Abs Immat Gran (auto) 0.01 Absolute Neuts (auto) 1.1 L Absolute Nucleated RBC 0.0 Nucleated RBC % 0.0 Sodium 141 Potassium 3.7 Chloride 99 Carbon Dioxide 29 Anion Gap 13 BUN 8 L Creatinine 0.90 Estim Creat Clear Calc 100 Estimated GFR > 60 Glucose 88 Lactic Acid 0.7 Calcium 8.3 L Magnesium 2.1 Total Bilirubin 0.9 AST 25 ALT 16 Al
[2022-04-27] MEDS: MELOXICAM 7.5 MG TABLET 15 MG PO (09:06)
[2022-04-27] MEDS: PANTOPRAZOLE 40 MG TABLET PO (09:06)
[2022-04-27] MEDS: traMADol HCL (*CRX) 50 MG TABLET PO (09:10)
--- NOTE | 2022-04-27 10:45 | PM.DS ---
DS: Admitting Diagnosis Discharge Date 04/27/22 1045 Admitting Diagnosis C diff DS: Discharge Diagnosis Discharge Diagnosis (1) C. difficile diarrhea: Code(s): A04.72 - Enterocolitis due to Clostridium difficile, not specified as recurrent Status: Acute Assessment and Plan: Presented with abdominal pain Started on oral vanco, DC IV flagyl Probiotic added GI consulted thank you for your help diet advanced to full liquids CT of the abd/pel: indicated ileus, exam does not correlate C. diff was positive Isolation precautions WBC 3.3 Stop fluids as he is eating a drinking (2) Gastro-esophageal reflux disease without esophagitis: Code(s): K21.9 - Gastro-esophageal reflux disease without esophagitis Status: Acute Assessment and Plan: continue with pantoprazole (3) Migraine without aura, not intractable, without status migrainosus: Code(s): G43.009 - Migraine without aura, not intractable, without status migrainosus Status: Acute Assessment and Plan: continue with Mobic and rizatriptan Controlled adjust therapy if indicated DS: Summary Hospital Course Hospital Course: Patient is a 52-year-old male with a past medical history of arthritis, GERD, arthritis who presented to the ED with complaints of diarrhea and abdominal pain. C diff came back positive upon arrival. Patient just recently restarted [place] flex for skin disease. Patient was given IV fluids and rehydrated. CT indicated possible ileus and GI was consulted. White blood cell count was on trend and is currently 2.3. Diet has been advanced slowly. Patient was started on oral vancomycin. Currently patient is feeling okay. Patient still has some abdominal cramping however does get better with the Bentyl. Patient denies any chest pain, shortness a breath, nausea, vomiting, constipation, weakness or fatigue. Patient has been able to walk around the room. Patient understands isolation precautions including using soap and water when washing hands. Status at Discharge Functional status at discharge: independent ambulation Overall status at discharge: patient is progressing back to baseline Time Spent with Patient Time attestation: Total time spent providing and/or coordinating discharge services: 36 minutes Time spent: Greater than 30 minutes Specific discharge activities: Diagnostic testing, chart review, developing a treatment plan, education, care coordination documentation, physical exam, result review Exam Const: General: cooperative, healthy appearing, comfortable, no acute distress, well developed, alert, awake, Physically active, average body habitus and well nourished Nutritional Appearance: average body habitus and well nourished Orientation/consciousness: oriented to person, oriented to place, oriented to time and patient oriented x3 Limitations: no limitations HENMT: Head: normal to inspection, No palpable skull fracture present, normocephalic and atraumatic Ears: hearing grossly normal bilaterally and external ears normal Face/Nose/Sinus: Normal external nose present and Normal nares present Eyes: General: appearance normal, both eyes and all related structures Alignment and Position: alignment normal Periorbital: periorbital findings normal Eyelids: eyelids normal Pupils: Equal, round and reactive pupils present EOM: EOMs intact bilaterally Neck: Neck: normal visual inspection, full ROM, no lymphadenopathy, trachea midline and supple Thyroid: thyroid normal Carotids: normal carotid upstroke Lymphatic: no lymphadenopathy noted Chest: Chest palpation & inspection: normal inspection of the chest Resp: Effort & Inspection: normal respiratory effort Auscultation: clear to auscultation bilaterally Cardio: Palpation: normal PMI Rate: regular rate Rhythm: regular rhythm Heart sounds: S1 normal heart sound present and S2 normal heart sound present
[2022-04-27] MEDS: CHOLESTYRAMINE (W/ SUGAR) 4 GM POWD.PACK PO (11:17)
[2022-05-06 12:47] LABS: Calprotectin, Stool 1760 mcg/g
== END 2022-04-27 13:41 | disposition home or self-care (01) ==
LOC: ANHED 15:43 → ANH2MED 17:29
PROVIDERS: Internal Medicine Gastroenterology; Nurse Practitioner; Admitting Provider Hospitalist; Emergency Provider Emergency Medicine; PCP Family Medicine; Visit Provider Hospitalist
DX: A04.72 Enterocolitis due to Clostridium difficile, not specified as recurrent (principal); K21.9 Gastro-esophageal reflux disease without esophagitis; G43.909 Migraine, unspecified, not intractable, without status migrainosus; L08.9 Local infection of the skin and subcutaneous tissue, unspecified; E78.00 Pure hypercholesterolemia, unspecified; M19.90 Unspecified osteoarthritis, unspecified site; F10.90 Alcohol use, unspecified, uncomplicated; Z79.891 Long term (current) use of opiate analgesic; Z79.899 Other long term (current) drug therapy; Z83.2 Family history of diseases of the blood and blood-forming organs and certain disorders involving the immune mechanism; Z82.49 Family history of ischemic heart disease and other diseases of the circulatory system; Z84.89 Family history of other specified conditions
CPT/HCPCS: 36415; 74177; 80053; 81001; 83605; 83690; 83735; 83993; 84443; 85025; 87493; 96361; 96365; 96366; 96375; 99285; A9270; G0378; J1170; J7030; J7120; Q9967

== ENCOUNTER → 2022-10-28 09:43 | Outpatient (CLI) | payer BC, SELFPAY ==
--- NOTE | ~2022-10-28 | US_ITS ---
Duplex Sonography of the right extremity: Indication: Pain and swelling Findings: Sagittal and transverse B-mode images as well as color-flow imaging were performed on the r ight femoral and popliteal veins. B-mode examination was done without and with compression in the tr ansverse plane. There is good visualization of the common femoral, proximal profunda femoral, superf icial femoral, greater saphenous, and popliteal veins. There is echogenic thrombus in the midportion the right SFV, which is noncompressible with absence of flow. The remaining visualized deep venous structures in the right lower extremity demonstrate lore l flow and compressibility. Impression: DVT involving the midportion of the right SFV. Reviewed, dictated and finalized at location M. Impression: DVT involving the midportion of the right SFV.
== END ==
PROVIDERS: PCP Family Medicine; Visit Provider Family Medicine
DX: I82.411 Acute embolism and thrombosis of right femoral vein (principal)
CPT/HCPCS: 93971

== ENCOUNTER 2022-11-27 15:56 | Outpatient (CLI) | payer BC, SELFPAY ==
[2022-11-30 16:42] LABS: Amphetamines NEGATIVE ng/mL (<500); Barbiturates NEGATIVE ng/mL (<300); Benzodiazepines NEGATIVE ng/mL (<100); Cocaine Metabolite NEGATIVE ng/mL (<150); Marijuana Metabolite NEGATIVE ng/mL (<20); Methadone Metabolite NEGATIVE ng/mL (<100); Opiates NEGATIVE ng/mL (<100); Oxidant NEGATIVE mcg/mL (<200); pH 6.4 (4.5-9.0)
== END 2022-11-27 15:57 | disposition home or self-care (01) ==
LOC: ANHGOSHLAB 15:59
PROVIDERS: PCP Family Medicine; Visit Provider Anesthesiology Pain Medicine
DX: F19.10 Other psychoactive substance abuse, uncomplicated (principal)
CPT/HCPCS: 80307

== ENCOUNTER → 2022-12-04 13:19 | Outpatient (CLI) | payer BC, SELFPAY ==
--- NOTE | ~2022-12-04 | US_ITS ---
EXAMINATION:US venous doppler LE RT INDICATION:Right lower extremity bruising and swelling. Patient on blood thinners. TECHNIQUE: Multiple grayscale, color flow and Doppler images of the right lower extremity deep venous systems were obtained and reviewed. COMPARISON:Ultrasound dated 10/28/2022 FINDINGS: There is chronic deep venous thrombosis of the mid femoral vein, unchanged. The common femo ral, superficial femoral and popliteal veins demonstrate normal respiratory variation, augmentation a nd compressibility. Color flow is also seen within the posterior tibial, peroneal, greater saphenous and profunda veins. IMPRESSION: 1: Chronic deep venous thrombosis of the right femoral vein, unchanged from prior ultrasound. Reviewed, dictated and finalized at location L. IMPRESSION: 1: Chronic deep venous thrombosis of the right femoral vein, unchanged from shania or ultrasound.
== END ==
PROVIDERS: PCP Family Medicine; Visit Provider Family Medicine
DX: I82.511 Chronic embolism and thrombosis of right femoral vein (principal)
CPT/HCPCS: 93971

== ENCOUNTER → 2022-12-09 14:58 | Outpatient (CLI) | payer BC, SELFPAY ==
--- NOTE | ~2022-12-09 | XR_ITS ---
EXAM: XR ankle RT min 3V, [id number] DATE: 12/09/2022 15:27 HISTORY: no injury severe pain recent blood clot in thigh . COMPARISON: None available. FINDINGS: Normal mineralization. No acute fracture or dislocation. Ossific fragment projecting over the posterior joint space may represent an old avulsion fracture or old fractured osteophyte. No lyti c or blastic lesion. Moderate osteoarthritic arthritis at the tibiotalar articulation and the first M TP joint. Mild degenerative change in multiple midfoot joints. Loss of the longitudinal arch. Moderat e ankle joint fluid collection. Moderate Achilles and plantar enthesopathy. No erosion or periosteal change. Soft tissues within normal limits. IMPRESSION: No acute osseous finding in the right ankle or foot. Polyarticular osteoarthritis. Planta r and Achilles enthesopathy. Pes planus. Moderate ankle joint effusion. Reviewed, dictated and finalized at location K. IMPRESSION: No acute osseous finding in the right ankle or foot. Polyarticular osteoarthritis. Plantar and Achilles enthesopathy. Pes planus. Moderate ankle j oint effusion.
== END ==
PROVIDERS: PCP Family Medicine; Visit Provider Family Medicine
DX: M25.471 Effusion, right ankle (principal); M25.571 Pain in right ankle and joints of right foot; M19.071 Primary osteoarthritis, right ankle and foot; M77.8 Other enthesopathies, not elsewhere classified; M21.41 Flat foot [pes planus] (acquired), right foot
CPT/HCPCS: 73610; 73630

== ENCOUNTER 2022-12-09 15:59 | Emergency (ER) | payer BC, SELFPAY ==
--- NOTE | ~2022-12-09 | US_ITS ---
EXAMINATION: US venous doppler LE RT DATE: 12/09/2022 20:09 INDICATION: worsening calf swelling and pain . TECHNIQUE: Grayscale images without and with compression and Doppler images of the right lower extrem ity veins were obtained. COMPARISON: 12/04/2022 FINDINGS: The right common femoral vein, profunda (deep) femoral vein, femoral vein, popliteal vein, peroneal v ein, posterior tibial veins, gastrocnemius vein, and greater saphenous vein are patent. IMPRESSION: 1. Patent right lower extremity veins. No evidence of deep venous thrombosis. Reviewed, dictated and finalized at location K.
[2022-12-09 16:11] VITALS: BP 148/74; PULSE 97; RESP 18; TEMP 37.1; O2SAT 99
[2022-12-09 19:24] VITALS: BP 154/95; PULSE 86; RESP 18; O2SAT 99
--- NOTE | 2022-12-09 19:50 | ED.EXTPRO ---
HPI - Extremity Problem General Chief complaint: Extremity Problem,Nontraumatic Stated complaint: right ankle pain Time Seen by Provider: 12/09/22 19:24 History of Present Illness HPI Narrative: Patient is a 52-year-old male presenting with right ankle pain. Patient states that he was recently diagnosed with a DVT involving his right leg. States that he was started on Eliquis several weeks ago and was advised to stop taking his meloxicam at that time. States that unfortunately, today he developed severe right ankle pain as well as right calf swelling. States that it looked like when he was first diagnosed with his DVT. Says that he went to see his PCP who obtained x-rays but then told him that no one would be around to read them for several days. So then he came to the ER. No numbness or weakness. No recent traumas. States he is compliant with his Eliquis. States that he recently saw a pain medicine doctor who started him on a buprenorphine patch for pain control. Denies chest pain or difficulty breathing. Denies further complaints. Related Data Home Medications Medication Instructions Recorded Confirmed rizatriptan 10 mg tablet 10 mg PO DAILY PRN Migraine 12/31/21 12/17/22 Headache ferrous sulfate 325 mg (65 mg 325 mg PO BID 07/31/22 12/17/22 iron) tablet Allergies Allergy/AdvReac Type Severity Reaction Status Date / Time cephalexin AdvReac Intermediate Diarrhea Verified 12/17/22 07:44 Review of Systems Review of Systems: All systems reviewed & are unremarkable except as noted in HPI and below PMFSH Past Medical History Medical History Allergic rhinitis due to pollen Arthritis Encounter to vaccinate patient Gastro-esophageal reflux disease without esophagitis Knee pain, bilateral 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 Low back pain Migraine without aura, not intractable, without status migrainosus Pain of left middle finger Screening for colon cancer Screening for prostate cancer Skin infection Surgical History Surgical History History of appendectomy (~1989) History of hernia repair (~2016) He had a total of 3 hernia repairs History of hernia repair (~1991) History of knee surgery (~04/22/16) History of knee surgery (~04/22/15) Family History Family History Mother Family history of elevated blood lipids Family history of cardiovascular disease Family history of hypothyroidism Family history of atrial fibrillation Family history of thyroid disease Other Family history of hypercholesterolemia Social History Social History Social History: the patient lives with his and they have 3 children. 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 He is a lifelong nonsmoker. He does not use any marijuana or illicit drugs. The patient drinks approximately 6-12 beers per week. His is the durable power trust and estates attorney for healthcare. Code status full code Smoking status: Never smoker Second hand tobacco smoke exposure: Yes Alcohol intake: current Drinks per week: 10 Alcohol use details: 6-12 beers per week Substance use: never Lack of Transportation: No Lack of Food: Never True Current Housing: I Have Housing Concerned About Future Housing: No Difficulty Paying Gas/Electric Bills: No Difficulty Paying for Meds: No Currently Unemployed: No Education: Bachelor's Degree Difficulty w/ Childcare or Family Care: No Living arrangements: with family Spiritual care concerns: No Exam Narrative: GENERAL: Well-appearing, well-nourished, and in no acute distress. HEAD: Normocephalic, atraumatic. EYES: PERRLA and EOMI. ENT: Nares clear, no rhinorrhea or epistaxis. Mucous membranes moist. NECK: Supple. CHEST: Clear to auscultation. No
[2022-12-09] MEDS: KETOROLAC 30 MG/ML VIAL (*BKC) IM (20:06)
[2022-12-09 21:20] VITALS: BP 151/80; PULSE 74; RESP 19; O2SAT 97
== END 2022-12-09 22:10 | disposition home or self-care (01) ==
PROVIDERS: Emergency Provider Emergency Medicine; PCP Family Medicine
DX: M25.571 Pain in right ankle and joints of right foot (principal); M25.471 Effusion, right ankle; M19.90 Unspecified osteoarthritis, unspecified site; K21.9 Gastro-esophageal reflux disease without esophagitis; Z77.22 Contact with and (suspected) exposure to environmental tobacco smoke (acute) (chronic); Z86.718 Personal history of other venous thrombosis and embolism; Z79.01 Long term (current) use of anticoagulants
CPT/HCPCS: 93971; 96372; 99284; J1100; J1885

== ENCOUNTER 2022-12-16 13:42 | Outpatient (CLI) | payer BC, SELFPAY ==
[2022-12-18 21:42] LABS: Antithrombin III Activity 118 % normal (80-135)
[2022-12-20 13:37] LABS: Homocysteine 12.7 umol/L (<11.4)
[2022-12-21 20:56] LABS: Lupus dRVVT Screen 35 sec (<=45); PTT-LA Screen 30 sec (<=40)
[2022-12-22 13:32] LABS: Factor V (Leiden) Mutation NEGATIVE
== END 2022-12-16 13:43 | disposition home or self-care (01) ==
LOC: ANHLAB 13:44
PROVIDERS: PCP Family Medicine; Visit Provider Internal Medicine Hematology & Oncology
DX: D68.69 Other thrombophilia (principal)
CPT/HCPCS: 36415; 81240; 81241; 83090; 85300; 85303; 85306; 85613; 85730; 86146

== ENCOUNTER 2022-12-17 08:11 | Outpatient (CLI) | payer BC, SELFPAY ==
[2022-12-17 10:05] LABS: Kit Draw Collected
== END 2022-12-17 08:12 | disposition home or self-care (01) ==
LOC: ANHGOSHLAB 08:13
PROVIDERS: PCP Family Medicine; Visit Provider Nurse Practitioner
DX: M10.9 Gout, unspecified (principal)
CPT/HCPCS: 36415

== ENCOUNTER 2022-12-24 11:33 | Outpatient (CLI) | payer BC, SELFPAY ==
--- NOTE | ~2022-12-24 | XR_ITS ---
Clinical Indication: Hypertension PA and lateral views of the chest: Comparison: None Findings: The lungs are clear, without evidence of focal consolidation or pleural effusion. Cardiome diastinal silhouette is within normal limits. Bones and soft tissues are unremarkable. Impression: Normal chest. Reviewed, dictated and finalized at location . Impression: Normal chest.
== END 2022-12-24 11:34 | disposition home or self-care (01) ==
PROVIDERS: PCP Family Medicine; Visit Provider Internal Medicine Hematology & Oncology
DX: I10 Essential (primary) hypertension (principal)
CPT/HCPCS: 71046

== ENCOUNTER 2022-12-24 14:53 | Outpatient (NON) | payer BC, SELFPAY ==
[2022-12-24 20:08] LABS: Crystals Synovial Fluid None Seen (None Seen)
[2022-12-24 20:09] LABS: Appearance Synovial Fluid Bloody (Clear); Color Synovial Fluid Red (Colorless); Source Synovial Fluid Synovial fluid
[2022-12-24 20:10] LABS: Lymphocytes Synovial Fluid 13 %; Monocytes Synovial Fluid 71 %; Neutrophils Synovial Fluid 16 % (0-25); Nucleated Cell Synovial Fluid 1620 /uL (0-200); RBC Synovial Fluid 270000 /uL (0-0)
[2023-01-16 11:42] LABS: Reference Lab Test Result Negative
== END 2022-12-24 14:54 | disposition home or self-care (01) ==
LOC: ANHLAB 14:55
PROVIDERS: PCP Family Medicine; Visit Provider Orthopaedic Surgery
DX: M25.471 Effusion, right ankle (principal)
CPT/HCPCS: 36415; 82945; 84157; 86430; 87070; 87075; 87205; 89051; 89060

== ENCOUNTER 2023-01-01 11:50 | Outpatient (CLI) | payer BC, SELFPAY ==
[2023-01-01 13:12] LABS: Prostate Specific Antigen 3.9 ng/mL (< OR = 4.0)
== END 2023-01-01 11:51 | disposition home or self-care (01) ==
LOC: ANHLAB 11:51
PROVIDERS: PCP Family Medicine; Visit Provider Internal Medicine Hematology & Oncology
DX: Z12.5 Encounter for screening for malignant neoplasm of prostate (principal)
CPT/HCPCS: 36415; 84153; G0103

== ENCOUNTER 2023-01-02 12:43 | Outpatient (CLI) | payer BC, SELFPAY ==
--- NOTE | ~2023-01-02 | MR_ITS ---
EXAMINATION: MR ankle RT wo/w con DATE: 01/02/2023 13:52 INDICATION: Right ankle pain TECHNIQUE: Magnetic resonance imaging (MRI) of the right ankle was performed without and with 18 mL M ultihance intravenous contrast. Sequences axial, sagittal and coronal PD-weighted FSE and PD-weighted FS FSE, axial T1-weighted FSE, axial T1-weighted FS FSE, sagittal fluid sensitive FSE STIR and postc ontrast axial and coronal T1-weighted FS FSE. COMPARISON: Right ankle radiographs dated 12/09/2022 FINDINGS: Medial ankle ligaments: There is thickening of the superficial deltoid ligaments as well as the superomedial component of the spring ligament complex without surrounding edema consistent with scarring related to chronic sprain . Additional scarring related to chronic sprain of the deep deltoid ligament with loss of the normall y more well-defined striated appearance. Lateral ankle ligaments: The anterior and posterior inferior tibiofibular ligaments are normal. Small enthesophytes at the fib ular insertions of the anterior talofibular and calcaneofibular ligaments, both which appear thickene d and without surrounding edema consistent with scarring related to chronic sprain. The posterior yolis ofibular ligament is normal. Tendons: Small enthesophytes at the calcaneal insertion of the otherwise normal Achilles tendon. There is also a normal plantaris tendon. The peroneus longus and brevis tendons are normal. The tibialis anterior and extensor hallucis longus and extensor digitorum longus tendons are normal. The tibialis posterior , flexor digitorum longus and flexor hallucis longus tendons are normal. Plantar fascia: Plantar aponeurosis is normal. Bones/other: Bone alignment is normal. Mild osteoarthritis at the ankle joint with subarticular edema-like marrow signal change surrounding a small likely degenerative articular cyst along the lateral rim of the yolis ar dome. Additional mild osteoarthritis at the second-fourth tarsal metatarsal joints with mild likel y degenerative subarticular edema-like signal change at the dorsal base of the third metatarsal and b oth sides of the second tarsal metatarsal joint. Otherwise normal marrow signal with no fracture or p athologic marrow replacing process. Lisfranc ligament complex is normal. Sinus Tarsi is unremarkable. Fluid: Physiologic amount fluid in the joint space. No joint effusions, tenosynovitis or other abnormal flui d collections. IMPRESSION: 1. Scarring consistent with chronic sprains of several of the medial and lateral stabilizing ligament s of the ankle. 2. Mild osteoarthritis with associated mild subarticular edema-like signal change at the right ankle and a few of the central tarsal metatarsal joints. Reviewed, dictated and finalized at location A. IMPRESSION: 1. Scarring consistent with chronic sprains of several of the medial and latera l stabilizing ligaments of the ankle. 2. Mild osteoarthritis with associated mild subarticular edema-like signal hernández ge at the right ankle and a few of the central tarsal metatarsal joints.
== END 2023-01-02 12:44 | disposition home or self-care (01) ==
PROVIDERS: PCP Family Medicine; Visit Provider Orthopaedic Surgery
DX: M25.471 Effusion, right ankle (principal); M65.9 Synovitis and tenosynovitis, unspecified; M25.571 Pain in right ankle and joints of right foot; M19.071 Primary osteoarthritis, right ankle and foot
CPT/HCPCS: 73723; A9577

== ENCOUNTER 2023-02-11 15:30 | Outpatient (RCR) | payer BC, SELFPAY ==
--- NOTE | 2022-12-17 16:31 | PTOPEVAL1 ---
Assessment and note entered by Ambika Pennington, PT Evaluation Information Assessment Status Evaluation Diagnosis chronic pain,R knee, L knee, R hand,L hand,neck Onset November 03, 2022 Subjective Information want to focus treatment on R ankle; had pain in R leg, doppler revealed DVT, was taken off his meloxicam and pain worse overall, mostly in R ankle; recent knee injections have decreased knee pain due to R ankle: pain with movement, is off work due to ankle instructed by dr: stay off as much as able, no heavy lifting; saw primary dr, is off blood thinner now; had ankle xray, have referral to ortho- not have appt yet 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 He reports R ankle is the most painful and he is not working due to ankle pain. It also causes him problems with sleeping, walking and home activities. Onset of pain with L thigh blood clot and had to be off meloxicam--pain increased after that. His history includes R and L knee surgery, with continued pain and recent injections for knees. With the evaluation, he has pain with all R ankle motions, with PF most painful; limited ankle DF ROM; his standing posture is with R knee varus and ankle calcaneal inversion; with palpation there is tenderness and spasms over mid gastroc/ soleus. Skilled PT services are indicated for modalities to decrease pain and spasms, therapeutic exercises to increase ankle DF ROM
--- NOTE | 2023-01-07 16:25 | OPREHPOC ---
Outpatient Therapy Plan of Care This is a Multidisciplinary Plan of Care that may contain components documented by all disciplines (PT, OT, and ST.) PT Problem 1 PT Problem #1 Knowledge Deficit PT Goal 1 Goal 1* pt indep with HEP Progress Met Comment 01-07-23 d/c R ankle treatment EVAL for neck pain: met ankle goals NEW goals for cervical pain; 1* indep with HEP PT Problem 2 PT Problem #2 Pain PT Goal 1 Goal 1* pt report pain rating at worst R ankle of 6/10 2* pt report with sleeping, awaken 1x/night due to R ankle pain 3* pt report walking/standing tolerance of 3 hours Progress Partially Met Comment 01-07-23 d/c R ankle treatment EVAL for neck pain: met ankle goals 1,2; NEW goals for cervical pain; * 1 pain rating at worst of 4/10 PT Problem 3 PT Problem #3 Impaired Range of Motion PT Goal 1 Goal 1* long sitting R ankle DF ROM 10' active Progress Met Comment 01-07-23 d/c R ankle treatment EVAL for neck pain: met ankle goals NEW goals for cervical pain; 1* pt perform cervical flexion without an increase in pain reported PT Problem 4 PT Problem #4 Impaired Strength PT Goal 1 Goal increase strength of R ankle: 1* single leg standing x 10 seconds 2* standing Bilateral ankle PF x 2o reps 3* pt perform full squat/ ankle DF with lifting 20 # box from floor with both hands Progress Partially Met Comment 01-07-23 d/c R ankle treatment
--- NOTE | 2023-01-07 16:25 | PTOPEVAL1 ---
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 inspector, and is feeling better; NECK: neck started popping after had to stop taking meloxiam; before that, never really had any neck pain; no imaging for neck; Reported Pain Level Pain Score Self Report Additional Pain Score Comments R ankle: pain range in the past week 3-10; increase with stairs, one position for about 1 hour decrease pain with ice, rest is able to sleep through the night with pillow under ankle; walking tolerance 30 minutes & standing tolerance 15 minutes have a velcro ankle support brace- just got yesterday, dr told him to get; NECK: pain in past week -12/29; popping and tight over middle of neck; increase pain: nothing, just comes out of now where and pops decrease pain; what ever doing, stop and let pain calm down no issues with neck and sleeping; going to get a new mattress tomorrow; usually sleep side R/L but since ankle problem is sleeping supine; Assessment PT Clinical Summary Eamon has received 6 PT sessions for R ankle pain He has improved in all areas: pain decreased to 3 -5/10; reported sleeping without awakening from pain; strength and ROM of ankle; education completed for HEP. Discharge treatment for R ankle pain. EVAL: neck pain: his ROM is WNL of neck and shoulders; with palpation has spasms and tenderness over L upper traps and upper thoracic paraspinals, with rounded shoulder posture and weakness over scapula. PLAN: skilled PT for modalities to decrease pain and spasms, therapeutic exercises to improve posture and scapular strength, with education for home exercises.
--- NOTE | 2023-02-11 16:02 | PTOPDC ---
Assessment and note entered by Ambika Pennington, PT Evaluation Information Assessment Status Discharge Diagnosis neck pain, R ankle pain Onset November 03, 2022 Subjective Information neck is better, doing the exercises Reported Pain Level Pain Score Self Report Additional Pain Score Comments pain range of past week of neck: 0-5/10; aches, dull, tender; increase pain: strain and do too much decrease pain: exercises, heat pad, is not taking any pain meds for neck; sleeping is OK- have new mattress; Assessment PT Clinical Summary Eamon has received a total of 11 PT sessions, for ankle and neck pain. This last treatment session for was for his neck: he improved with pain rating at low rating from 4 to 0/10 and high rating of 7 to 5/10; able to perform active cervical ROM without an increase in pain reported; improved posture and strength of cervical-scapular area. And he is indep with HEP. The goals were achieved, except the pain rating at the high rating. Discharge PT services. He is to continue with his HEP and monitoring his posture/positioning. Plan of Care PT Services Indicated No
== END 2023-02-12 14:17 | disposition home or self-care (01) ==
LOC: ANHPT 15:30
PROVIDERS: PCP Family Medicine; Visit Provider Anesthesiology Pain Medicine
DX: M15.9 Polyosteoarthritis, unspecified (principal); M47.812 Spondylosis without myelopathy or radiculopathy, cervical region; M25.561 Pain in right knee; M25.562 Pain in left knee; M25.541 Pain in joints of right hand; M25.542 Pain in joints of left hand; G89.29 Other chronic pain
CPT/HCPCS: 97022; 97110; 97112; 97140; 97161; 97162

== ENCOUNTER 2024-04-19 13:27 | Emergency (ER) | payer BC, SELFPAY ==
[2024-04-19 13:50] VITALS: BP 141/73; PULSE 72; RESP 16; TEMP 36.8; O2SAT 98
--- NOTE | 2024-04-19 13:50 | ED.LOWEXIN ---
HPI - Extremity Injury (Lower) General Chief Complaint: Extremity Injury, Lower Stated Complaint: calf /knee pain and swelling Source: patient Mode of arrival: ambulatory Limitations: no limitations History of Present Illness HPI Narrative: 54 y/o male with a history of DVT (10/2022) presented for c/o right lower leg pain and swelling worsening over the last week. States the pain is like a 'burst' and comes on suddenly and intermittently. Pain is described as a nicholas horse cramp. Taking Tramdaol for pain. Endorses the symptoms are similar to the previous DVT. States at that time he was on blood thinners for about 6 weeks. Currently denies chest pain, heart racing, dizziness, n/v/d/f/c. Denies injury. Related Data Home Medications Medication Instructions Recorded Confirmed rizatriptan 10 mg tablet 10 mg PO DAILY PRN Migraine 12/31/21 04/19/24 Headache ferrous sulfate 325 mg (65 mg 325 mg PO BID 07/31/22 04/19/24 iron) tablet aspirin 81 mg tablet,delayed 81 mg PO DAILY 02/10/23 04/19/24 release (Adult Low Dose Aspirin) Allergies Allergy/AdvReac Type Severity Reaction Status Date / Time cephalexin AdvReac Intermediate Diarrhea Verified 04/19/24 13:54 Review of Systems Review of Systems: CONSTITUTIONAL: Denies body aches, fever, chills CARDIOVASCULAR: Denies chest pain, palpitations, or edema. RESPIRATORY: Denies cough or dyspnea. SKIN: Denies rash, itching, or wounds. MUSCULOSKELETAL: Reports RLE pain and swelling. NEUROLOGIC: Denies headache, numbness, tingling, or weakness. All systems reviewed & are unremarkable except as noted in HPI and below PMFSH Past Medical History Medical History (Updated 04/19/24 @ 14:05 by Jerica Jackson APRN) Allergic rhinitis due to pollen Ankle arthritis Arthritis DVT (deep venous thrombosis) Encounter to vaccinate patient Gastro-esophageal reflux disease without esophagitis Knee pain, bilateral residential use of drug residential use of drug Low back pain Migraine without aura, not intractable, without status migrainosus Pain of left middle finger Screening for colon cancer Screening for prostate cancer Skin infection Synovitis of right ankle Surgical History Surgical History History of appendectomy (~1989) History of hernia repair (~2016) He had a total of 3 hernia repairs History of hernia repair (~1991) History of knee surgery (~04/22/16) History of knee surgery (~04/22/15) Family History Family History Mother Family history of elevated blood lipids Family history of cardiovascular disease Family history of hypothyroidism Family history of atrial fibrillation Family history of thyroid disease Other Family history of hypercholesterolemia Social History Social History Social History: the patient lives with his and they have 3 children. 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 He is a lifelong nonsmoker. He does not use any marijuana or illicit drugs. The patient drinks approximately 6-12 beers per week. His is the durable power attorney general for healthcare. Code status full code Smoking status: Never smoker Second hand tobacco smoke exposure: Yes Alcohol intake: current Drinks per week: 10 Alcohol use details: 6-12 beers per week Substance use: never Lack of Transportation: No Lack of Food: Never True Current Housing: I Have Housing Concerned About Future Housing: No Difficulty Paying Gas/Electric Bills: No Difficulty Paying for Meds: No Currently Unemployed: No Education: Bachelor's Degree Difficulty w/ Childcare or Family Care: No Living arrangements: with family Spiritual care concerns: No Comments At time of signature, I have reviewed and agree with nursing past medical, surgical, social and family history unless otherwise noted. Please see nursing chart for further information. There is no relevant family history pertinent to the presenting complaint Exam Narrative: GENERAL: Well-appearing, well-nourished, and in no acute distress. CHEST: Speaks in full sentences. No respiratory distress. HEART: Regular rate and rhythm. Normal and equal peripheral pulses. EXTREMITIES: RLE has normal strength and sensation, normal range of motion without pain with movement. Right calf is tender with palpation and swollen when compared to left. Negative Sybil's sign. No erythema or ecchymosis, No open wounds, or obvious deformity; alignment normal, pulse palpable and equal bilaterally, skin warm, dry, pink. Capillary refill less than 3 seconds. SKIN: Warm, dry NEURO: Alert and oriented x3. Course Course Emergency Course: Patient is aware of diagnosis, understands and agrees to treatment plan. Anticipatory guidance given. Patient agrees to follow-up as directed and is aware of reasons to seek care at the emergency department. Portions of this record may have been created with voice recognition software Level of Care: Express Care Visit Vital Signs Vital signs: Vital Signs Temperature 98.3 F 04/19/24 13:50 Pulse Rate 72 04/19/24 13:50 Respiratory Rate 16 04/19/24 13:50 Blood Pressure 141/73 H 04/19/24 13:50 Pulse Oximetry 98 04/19/24 13:50 Oxygen Delivery Room Air 04/19/24 13:50 Temperature 98.3 F 04/19/24 13:50 Pulse Rate 72 04/19/24 13:50 Respiratory Rate 16 04/19/24 13:50 Blood Pressure 141/73 H 04/19/24 13:50 Pulse Oximetry 98 04/19/24 13:50 Oxygen Delivery Room Air 04/19/24 13:50 Reviewed Transfer Transfered to: [facility] Transportation: Other (Private vehicle) Transfer rationale: Pt is agreeable to transfer. Requests transfer to [facility] via private vehicle. Risks of transportation reviewed with pt including injury, worsening of condition and . v/u. Report called to hospital, spoke with , accepting physician. Pt is in stable condition at time of transfer. Advised to remain NPO and go directly to the hospital. MDM - Extremity Injury (Lower) MDM Narrative Medical decision making narrative: Discussed physical exam findings. Advised ER transfer for evaluation of DVT. Pt had spoken with his PCP Dr العراقي's office this morning regarding symptoms, they were notified while pt in clinic. Differential Diagnosis Differential diagnosis: Likely other (DVT, CHF, PVD, venous insufficiency, medication related, renal failure, gravitational edema, cellulitis) Discharge Plan Discharge Clinical Impression: Pain and swelling of right lower leg Patient Disposition: Acute Care Hospital Condition: Stable Prescriptions: No Action ferrous sulfate 325 mg (65 mg iron) tablet 325 mg PO BID aspirin [Adult Low Dose Aspirin] 81 mg tablet,delayed release (DR/EC) 81 mg PO DAILY diclofenac sodium [Voltaren Arthritis Pain] 1 % gel 2 g topical QID Qty: 100 5RF Rx Instructions: apply to single elbow, wrist or hand; for hand includes palm/fingers/back of hand tramadol 50 mg tablet 50 mg PO Q6H PRN (Reason: pain) Qty: 60 1RF rizatriptan 10 mg tablet 10 mg PO DAILY PRN (Reason: Migraine Headache) Rx Instructions: take one tablet at onset of headache, mayrepeat once in 2 hours, do not exceed 20 mg in 24 hours trazodone 150 mg tablet See Rx Instructions .ROUTE .COMPLEX Qty: 90 1RF Dose Instruction: TAKE 1 TABLET DAILY AT BEDTIME Rx Instructions: TAKE 1 TABLET DAILY AT BEDTIME omeprazole 20 mg capsule,delayed release(DR/EC) 20 mg PO DAILY Qty: 90 1RF folic acid 1 mg tablet 1 mg PO DAILY Qty: 90 1RF meloxicam 15 mg tablet 15 mg PO DAILY Qty: 90 1RF Follow-up/Referrals: Yasemin العراقي DO [Primary Care Provider] -
== END 2024-04-19 14:11 | disposition short-term general hospital (02) ==
PROVIDERS: Emergency Provider Nurse Practitioner Family; PCP Family Medicine
DX: M79.661 Pain in right lower leg (principal); R22.41 Localized swelling, mass and lump, right lower limb; Z86.718 Personal history of other venous thrombosis and embolism; M19.90 Unspecified osteoarthritis, unspecified site; K21.9 Gastro-esophageal reflux disease without esophagitis; Z79.82 Long term (current) use of aspirin
CPT/HCPCS: 99212; G0463

== ENCOUNTER 2024-04-19 14:25 | Emergency (ER) | payer BC, SELFPAY ==
--- NOTE | ~2024-04-19 | US_ITS ---
EXAMINATION: US venous doppler LE RT DATE: 04/19/2024 15:27 INDICATION: pain, swelling . TECHNIQUE: Grayscale images without and with compression and Doppler images of the right lower extrem ity veins were obtained. COMPARISON: 12/09/2022 FINDINGS: The right common femoral vein, profunda (deep) femoral vein, femoral vein, popliteal vein, peroneal v ein, posterior tibial veins, and greater saphenous vein are patent. IMPRESSION: Patent right lower extremity veins. No evidence of deep venous thrombosis. Reviewed, dictated and finalized at location K.
[2024-04-19 14:45] VITALS: BP 109/67; PULSE 73; RESP 18; TEMP 36.6; O2SAT 97
--- NOTE | 2024-04-19 14:56 | ED_ITS ---
HPI - Extremity Injury (Lower) General Chief Complaint: Extremity Injury, Lower Stated Complaint: R leg swelling and pain Time Seen by Provider: 04/19/24 14:45 Focused HPI: Patient is a 54-year-old male presents to the ER with right lower extremity pain and swelling. He reports he has a history of DVTs and had his last 1 approximately 1 year ago. Patient denies chest pain, shortness of breath, or other signs of infection. He reports on Thursday he felt a pop in his right lower extremity when he was in the shower. Pain started shortly afterwards. Patient reports this is how his last DVT presented. GENERAL: Well-appearing, well-nourished, and in no acute distress. HEAD: Normocephalic, atraumatic. CHEST: Clear to auscultation. ?No respiratory distress. HEART: Regular rate and rhythm.? NEURO: ?Alert and oriented x3. Patient screened in triage and initial orders placed.? ?Additional care and disposition to be based upon?diagnostic testing and treatment. History of Present Illness HPI Narrative: see above Related Data Home Medications Medication Instructions Recorded Confirmed rizatriptan 10 mg tablet 10 mg PO DAILY PRN Migraine 12/31/21 04/19/24 Headache ferrous sulfate 325 mg (65 mg 325 mg PO BID 07/31/22 04/19/24 iron) tablet aspirin 81 mg tablet,delayed 81 mg PO DAILY 02/10/23 04/19/24 release (Adult Low Dose Aspirin) Allergies Allergy/AdvReac Type Severity Reaction Status Date / Time cephalexin AdvReac Intermediate Diarrhea Verified 04/19/24 14:49 Review of Systems Review of Systems: All systems reviewed & are unremarkable except as noted in HPI and below PMFSH Past Medical History Medical History Allergic rhinitis due to pollen Ankle arthritis Arthritis DVT (deep venous thrombosis) Encounter to vaccinate patient Gastro-esophageal reflux disease without esophagitis Knee pain, bilateral [facility] use of drug [facility] use of drug Low back pain Migraine without aura, not intractable, without status migrainosus Pain of left middle finger Screening for colon cancer Screening for prostate cancer Skin infection Synovitis of right ankle Surgical History Surgical History History of appendectomy (~1989) History of hernia repair (~2016) He had a total of 3 hernia repairs History of hernia repair (~1991) History of knee surgery (~04/22/16) History of knee surgery (~04/22/15) Family History Family History Mother Family history of elevated blood lipids Family history of cardiovascular disease Family history of hypothyroidism Family history of atrial fibrillation Family history of thyroid disease Other Family history of hypercholesterolemia Social History Social History Social History: the patient lives with his and they have 3 children. 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 He is a lifelong nonsmoker. He does not use any marijuana or illicit drugs. The patient drinks approximately 6-12 beers per week. His is the durable power civil litigation attorney for healthcare. Code status full code Smoking status: Never smoker Second hand tobacco smoke exposure: Yes Alcohol intake: current Drinks per week: 10 Alcohol use details: 6-12 beers per week Substance use: never Lack of Transportation: No Lack of Food: Never True Current Housing: I Have Housing Concerned About Future Housing: No Difficulty Paying Gas/Electric Bills: No Difficulty Paying for Meds: No Currently Unemployed: No Education: Bachelor's Degree Difficulty w/ Childcare or Family Care: No Living arrangements: with family Spiritual care concerns: No Exam Narrative: GENERAL: Well appearing, well-nourished, non-toxic, in no acute distress. HEAD: Normocephalic, atraumatic. NECK: Supple. No adenopathy, no masses. RESPIRATORY: Airway patent, respirations nonlabored. Clear to auscultation bilaterally, no rales, rhonchi, wheezing. CARDIOVASCULAR: Regular rate and rhythm without murmurs, rubs, or gallops. Peripheral pulses 2+ and equal bilaterally. ABDOMINAL: Soft, nontender, nondistended, no hepatosplenomegaly. Normoactive BS. MUSCULOSKELETAL: Moves all extremities. Strength/ROM intact without gross deformities. LLE slightly more edematous than RLE. SKIN: Warm, dry, normal color. No rashes. NEURO: A&O X3. Speech clear. Cranial nerves II-XII grossly intact. Steady gait. No ataxic movements. Endorses pain behind calf with palpation. PSYCHIATRIC: Appropriate mood and affect. Normal interaction. Course Vital Signs Vital signs: Vital Signs Temperature 36.6 C 04/19/24 14:45 Pulse Rate 73 04/19/24 14:45 Respiratory Rate 18 04/19/24 14:45 Blood Pressure 109/67 04/19/24 14:45 Pulse Oximetry 97 04/19/24 14:45 Oxygen Delivery Room Air 04/19/24 14:45 Temperature 36.6 C 04/19/24 14:45 Pulse Rate 73 04/19/24 14:45 Respiratory Rate 18 04/19/24 14:45 Blood Pressure 109/67 04/19/24 14:45 Pulse Oximetry 97 04/19/24 14:45 Oxygen Delivery Room Air 04/19/24 14:45 MDM - Extremity Injury (Lower) MDM Narrative Medical decision making narrative: Patient's right lower extremity venous ultrasound study was negative for DVT. He will be advised to follow-up with his primary care provider in the next day or 2. Differential Diagnosis Differential diagnosis: Likely other (DVT, muscle strain, Cooper's cyst) Imaging Data Attestation: I personally reviewed and interpreted this imaging study as follows: Radiologist's impression: Impressions Venous Doppler Study 04/19/24 15:27 IMPRESSION: Patent right lower extremity veins. No evidence of deep venous thrombosis. Discharge Plan Discharge Clinical Impression: Right leg pain, Pain of muscle of lower leg Patient Disposition: Home, Self-Care Condition: Stable Instructions: Antibiotic Form, Muscle Cramp (ED) Additional Instructions: Please follow-up with your primary care provider in the next day or 2. Please continue taking your medications as prescribed, including your meloxicam. Return to the ER with any worsening symptoms, including shortness of breath or chest pain. Prescriptions: No Action ferrous sulfate 325 mg (65 mg iron) tablet 325 mg PO BID aspirin [Adult Low Dose Aspirin] 81 mg tablet,delayed release (DR/EC) 81 mg PO DAILY diclofenac sodium [Voltaren Arthritis Pain] 1 % gel 2 g topical QID Qty: 100 5RF Rx Instructions: apply to single elbow, wrist or hand; for hand includes palm/fingers/back of hand tramadol 50 mg tablet 50 mg PO Q6H PRN (Reason: pain) Qty: 60 1RF rizatriptan 10 mg tablet 10 mg PO DAILY PRN (Reason: Migraine Headache) Rx Instructions: take one tablet at onset of headache, mayrepeat once in 2 hours, do not exceed 20 mg in 24 hours trazodone 150 mg tablet See Rx Instructions .ROUTE .COMPLEX Qty: 90 1RF Dose Instruction: TAKE 1 TABLET DAILY AT BEDTIME Rx Instructions: TAKE 1 TABLET DAILY AT BEDTIME omeprazole 20 mg capsule,delayed release(DR/EC) 20 mg PO DAILY Qty: 90 1RF folic acid 1 mg tablet 1 mg PO DAILY Qty: 90 1RF meloxicam 15 mg tablet 15 mg PO DAILY Qty: 90 1RF Follow-up/Referrals: Yasemin العراقي DO [Primary Care Provider] - Time of Disposition: 16:46
== END 2024-04-19 17:19 | disposition home or self-care (01) ==
PROVIDERS: Emergency Provider Registered Nurse; PCP Family Medicine
DX: M79.18 Myalgia, other site (principal); K21.9 Gastro-esophageal reflux disease without esophagitis; M19.90 Unspecified osteoarthritis, unspecified site; Z86.718 Personal history of other venous thrombosis and embolism; Z77.22 Contact with and (suspected) exposure to environmental tobacco smoke (acute) (chronic)
CPT/HCPCS: 93971; 99284

== ENCOUNTER 2024-04-21 09:34 | Outpatient (CLI) | payer BC, SELFPAY ==
--- NOTE | ~2024-04-21 | XR_ITS ---
XR tibia fibula RT 2V Ordering provider: Yasemin العراقي DO History: . M79.661 - Pain in right lower leg . Comparison: None. FINDINGS: BONES: No acute fracture or dislocation. Osteophytes seen in the area of the medial and lateral malle katie. Small fragment of bone seen near to the os calcis which may indicate old fracture. Early calcaneal spur. Ossification of the insertion of the tendo Achilles. JOINT SPACES: Severe osteoarthritic changes of the knee and patellofemoral joint. SOFT TISSUES: Normal. IMPRESSION: No acute osseous abnormality right leg. Severe osteoarthritic changes of the knee and patellofemoral joint. Reviewed, dictated and finalized at location A.
--- NOTE | ~2024-04-21 | XR_ITS ---
XR knee RT min 4V Ordering provider: Yasemin العراقي DO History: . M25.561 - Pain in right knee . Comparison: None. FINDINGS: BONES: No acute fracture or dislocation. JOINT SPACES: Severe narrowing of the medial compartment with marginal osteophytes. Marginal osteophy belinda seen in the patella. SOFT TISSUES: Normal. IMPRESSION: No acute osseous abnormality right knee. Severe osteoarthritic changes of the knee and patellofemoral joints. Reviewed, dictated and finalized at location A.
== END 2024-04-21 09:35 | disposition home or self-care (01) ==
LOC: GOSHIMG 09:35
PROVIDERS: PCP Family Medicine; Visit Provider Family Medicine
DX: M17.11 Unilateral primary osteoarthritis, right knee (principal); M79.661 Pain in right lower leg
CPT/HCPCS: 73564; 73590

== ENCOUNTER 2024-04-29 13:17 | Outpatient (CLI) | payer BC, SELFPAY ==
--- NOTE | ~2024-04-29 | US_ITS ---
EXAMINATION: US venous doppler LE RT DATE: 04/29/2024 14:27 INDICATION: Right lower limb pain. TECHNIQUE: Grayscale ultrasound images without and with compression and Doppler ultrasound images of the right lower extremity veins were obtained. COMPARISON: Ultrasound 04/19/2024 FINDINGS: The visualized portions of right common femoral vein, profunda (deep) femoral vein, femoral vein, pop liteal vein, peroneal veins, posterior tibial veins, and greater saphenous vein outflow are patent. T here is a 9.9 x 1.5 x 4.2 cm hypoechoic mass in the calf, consistent with hematoma. IMPRESSION: 1. No deep venous thrombosis. 2. Hematoma in the calf. Reviewed, dictated and finalized at location A. TIONATION SUPERVISOR
== END 2024-04-29 13:18 | disposition home or self-care (01) ==
LOC: ANHIMG 13:22
PROVIDERS: PCP Family Medicine; Visit Provider Family Medicine
DX: M79.661 Pain in right lower leg (principal); M79.18 Myalgia, other site; M79.89 Other specified soft tissue disorders; Z86.718 Personal history of other venous thrombosis and embolism
CPT/HCPCS: 93971

== ENCOUNTER 2024-05-05 10:43 | Outpatient (CLI) | payer BC, SELFPAY ==
--- NOTE | ~2024-05-05 | MR_ITS ---
EXAMINATION: MR lower leg RT wo con DATE: 05/05/2024 11:34 INDICATION: Right lower leg pain TECHNIQUE: Magnetic resonance imaging (MRI) of the right lower leg was performed without intravenous contrast. A marker was placed over the region of concern. Sequences included axial, sagittal and cor onal T1-weighted FSE and fluid sensitive FSE STIR. The contralateral left lower leg is included on th e coronal images. COMPARISON: None. FINDINGS: There is a tear of the posterior at epimysium of the medial head of the gastrocnemius muscle with a 1 4 x 4.8 x 1.6 cm lenticular hematoma deep to the posterior compartment fascia which exerts some mass effect upon the underlying medial head of the gastrocnemius. The tear of the epimysium extends 8 cm c raniocaudally. The musculature of the bilateral calves appears otherwise symmetric with normal bulk a nd signal. Bone marrow signal is normal throughout. No fracture, reactive edema or pathologic marrow replacing process. IMPRESSION: 1. Tear of the epimysium of the medial head of the right gastrocnemius muscle with 14 x 4.8 x 1.6 cm hematoma situated between the muscle and the more superficial posterior compartment fascia. Reviewed, dictated and finalized at location B. CAL TECHNICAL WRITER IMPRESSION: 1. Tear of the epimysium of the medial head of the right gastrocnemius muscle w ith 14 x 4.8 x 1.6 cm hematoma situated between the muscle and the more superfi cial posterior compartment fascia.
== END 2024-05-05 10:44 | disposition home or self-care (01) ==
PROVIDERS: PCP Family Medicine; Visit Provider Family Medicine
DX: M79.89 Other specified soft tissue disorders (principal); S86.111A Strain of other muscle(s) and tendon(s) of posterior muscle group at lower leg level, right leg, initial encounter; X58.XXXA Exposure to other specified factors, initial encounter; Z86.718 Personal history of other venous thrombosis and embolism
CPT/HCPCS: 73718

== ENCOUNTER 2024-11-16 14:07 | Outpatient (CLI) | payer BC, SELFPAY ==
--- NOTE | ~2024-11-16 | XR_ITS ---
XR humerus RT, XR elbow RT 2V 11/16/2024 14:34 Indication: Right arm pain Procedure: 2 views right humerus and 2 views right elbow Comparison: No prior studies for comparison. 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 There is mild osteoarthritis o f the right elbow. There is anatomic alignment. No fracture or traumatic malalignment. No soft tissue abnormality. No foreign bodies. Impression: 1: No acute bone or joint abnormality. Reviewed, dictated and finalized at location A. Impression: 1: No acute bone or joint abnormality. Impression: 1: No acute bone or joint abnormality.
--- NOTE | ~2024-11-16 | XR_ITS ---
XR shoulder RT min 2V 11/16/2024 14:34 Indication: Right shoulder pain Procedure: 3 views right shoulder Comparison: No prior studies for comparison. Findings: There is polyarticular osteoarthritis. No fracture, subluxation or dislocation. No signific ant soft tissue abnormality. No foreign bodies. Impression: 1: Mild-moderate polyarticular osteoarthritis of the right shoulder. Reviewed, dictated and finalized at location A. Impression: 1: Mild-moderate polyarticular osteoarthritis of the right shoulder.
== END 2024-11-16 14:08 | disposition home or self-care (01) ==
LOC: GOSHIMG 14:07
PROVIDERS: PCP Nurse Practitioner; Visit Provider Nurse Practitioner
DX: M25.511 Pain in right shoulder (principal); M25.521 Pain in right elbow; M79.601 Pain in right arm
CPT/HCPCS: 73030; 73060; 73070

== ENCOUNTER 2024-12-09 10:20 | Outpatient (CLI) | payer BC, SELFPAY ==
[2024-12-09 10:31] LABS: Basophils Percent Auto 0.8 % (0.2-1.2); Eosinophils Absolute Auto 0.2 K/mm3 (0-0.3); Eosinophils Percent Auto 4.4 % (0-4.4); Hematocrit 41.9 % (42.0-52.0); Hemoglobin 14.1 g/dL (14.0-18.0); Immature Granulocyte Absolute 0.01 K/mm3 (0.00-0.031); Immature Granulocyte Percent A 0.3 % (0-0.5); Lymphocytes Absolute Auto 0.83 K/mm3 (0.9-3.2); Lymphocytes Percent Auto 21.5 % (18.3-44.2); Mean Corpuscular HGB Conc 33.7 g/dl (32-36); Mean Corpuscular Hemoglobin 29.5 pg (26-34); Mean Corpuscular Volume 87.7 fl (80-100); Mean Platelet Volume 9.1 fl (7.4-10.4); Monocytes Absolute Auto 0.4 K/mm3 (0.1-0.6); Monocytes Percent Auto 10.4 % (2.6-8.5); Neutrophils Absolute Auto 2.4 K/mm3 (1.3-6.7); Neutrophils Percent Auto 62.6 % (45.5-73.1); Platelet Count Result 169 k/mm3 (150-375); Red Blood Count 4.78 M/mm3 (4.6-6.20); Red Cell Distribution Width 12.4 % (11.5-14.5); White Blood Count 3.9 K/mm3 (4.5-10.0)
[2024-12-09 10:36] LABS: Blood Urea Nitrogen 19 mg/dL (8-26); Carbon Dioxide 23 mmol/L (22-30); Chloride 102 mmol/L (98-109); Estimated Glomerular Filt Rate > 60; Glucose 149 mg/dL (70-105); Ionized Calcium (POC) 1.13 mmol/L (1.11-1.31); Potassium 3.9 mmol/L (3.5-4.9); Sodium 139 mmol/L (138-146)
--- NOTE | 2024-12-09 12:04 | CY_PTH ---
PATIENT: Eamon Murray LOC: [facility] #:[id number] AGE/SX: 54/M ROOM: RE12/09/[address]: Kaushal Singer MD : 1970 BED: DIS: 12/09/2024 SPEC #: [id number] RECD: 12/09/24 13:01 STATUS: IRIS REQ #: [id number] LESLY: 12/09/24 12:[address]: Kaushal Singer DEPT: [facility] Cytology RECD BY: Linda Dias ENTERED: 12/09/24 13:02 SP TYPE: Cytology OTHR DR: Jerica Clarke APRN Tissues: A - Flow Procedures: Flow Cytometry
[2024-12-09 12:51] LABS: Iron 101 ug/dL (49-181)
[2024-12-09 13:00] LABS: Percent Iron Saturation 25 % (20-50)
[2024-12-09 13:50] LABS: Folic Acid > 20.0 ng/mL (2.76->20)
[2024-12-12 12:19] LABS: Homocysteine. 8.9 umol/L (< or = 15.2)
== END 2024-12-09 10:21 | disposition home or self-care (01) ==
PROVIDERS: PCP Nurse Practitioner; Visit Provider Internal Medicine Hematology & Oncology
DX: D68.69 Other thrombophilia (principal); D64.9 Anemia, unspecified
CPT/HCPCS: 36415; 80047; 82607; 82728; 82746; 83090; 83540; 83550; 85025; 86038; 86039; 88184

== ENCOUNTER 2024-12-20 09:43 | Outpatient (CLI) | payer BC, SELFPAY ==
--- NOTE | ~2024-12-20 | US_ITS ---
Abdominal Sonogram: Real-time sonographic imaging of the abdomen was performed. Clinical History: Leukopenia Findings: The liver appears normal with no evidence of mass lesion or bile duct dilatation. Main por yolis vein demonstrates normal direction of flow. The spleen is normal in size without evidence of foca l lesion. The gallbladder is well distended, and appears normal with no evidence of gallstone or wal l thickening. The common bile duct measures 4 mm. The visualized pancreas, aorta, and IVC are unrema rkable. The right kidney measures 9.5 cm in length and the left kidney measures 11.4 cm. There is n o hydronephrosis or renal calculus. Impression: Unremarkable abdominal ultrasound. Reviewed, dictated and finalized at location M. Impression: Unremarkable abdominal ultrasound.
== END 2024-12-20 09:44 | disposition home or self-care (01) ==
LOC: MICIMG 09:44
PROVIDERS: PCP Nurse Practitioner; Visit Provider Internal Medicine Hematology & Oncology
DX: D72.819 Decreased white blood cell count, unspecified (principal)
CPT/HCPCS: 76700

== ENCOUNTER 2025-02-23 12:42 | Outpatient (CLI) | payer BC, SELFPAY ==
--- NOTE | ~2025-02-23 | MR_ITS ---
EXAMINATION: MR shoulder RT wo con DATE: 02/23/2025 13:16 INDICATION: Right shoulder pain TECHNIQUE: Magnetic resonance imaging (MRI) of the right shoulder was performed without intravenous contrast. Sequences included axial PD-weighted FS FSE, coronal oblique PD-weighted FS FSE, coronal oblique T2-weighted FS FSE, sagittal PD-weighted FS FSE, and sagittal T1-weighted SE. COMPARISON: None. FINDINGS: Coracoacromial arch: The acromion undersurface is curved in morphology (type II). There are small anterior and lateral subacromial spurs along anterolateral inferior surface of the acromion. The coracoacromial ligament is normal. Moderate acromioclavicular osteoarthritis with moderate-sized inferiorly directed marginal osteophyte along the lateral clavicle which exerts mild mass effect upon the underlying supraspinatus myotendinous junction with effacement of the intervening fat plane. Rotator cuff: Mild supraspinatus and infraspinatus tendinopathy. There is attenuation of the distal supraspinatus tendon consistent with partial thickness likely articular sided tear which extends 1 cm AP along the superior facet footplate. This progresses to a full-thickness tear along the more medial posterior aspect of the supraspinatus tendon which is located 1.5 cm medial to the footplate and underlies the lateral margin of the acromion. The full-thickness tear defect measures 1.5 cm AP and 4-5 mm medial to lateral. The teres minor tendon is normal. There is mild subscapularis tendinopathy without discrete tear. Normal rotator cuff muscle bulk and signal. Biceps tendon, glenoid labrum and glenohumeral cartilage: The intra-articular long head biceps tendon is not identified and likely torn and distally retracted with attenuated tendon seen at the cephalad aspect of the intertubercular groove. There is a fluid-filled longitudinal split tear extending the length of the visualized more caudal aspect of the tendon with the intact tendon slips at the periphery of the large intrasubstance fluid collection/ganglion cyst. Glenoid labrum is normal. Glenohumeral cartilage is normal. Fluid: Minimal glenohumeral joint effusion. No loose osteochondral bodies. Small amount of fluid and mild synovitis in the subacromial/subdeltoid bursa consistent with mild bursitis. Bones: Bone alignment is normal. No fracture or pathologic marrow replacing process. Mild hypertrophic and cystic changes at the lesser tuberosity. IMPRESSION: 1. Small full-thickness tear at the critical zone of the supraspinatus tendon which is superimposed over a larger partial thickness articular sided tear beginning more laterally along the superior facet footplate of the supraspinatus tendon. This may be related to impingement with small subacromial spurs along the anterolateral margin of the acromion. 2. Complete tear and distal retraction of the long head biceps tendon with attenuation and longitudinal split tearing of the retracted tendon at and below the level of the intertubercular groove. 3. Moderate acromioclavicular osteoarthritis. 4. Mild subacromial/subdeltoid bursitis. Reviewed, dictated and finalized at location A. IMPRESSION: 1. Small full-thickness tear at the critical zone of the supraspinatus tendon w hich is superimposed over a larger partial thickness articular sided tear begin donta more laterally along the superior facet footplate of the supraspinatus ten don. This may be related to impingement with small subacromial spurs along the anterolateral margin of the acromion. 2. Complete tear and distal retraction of the long head biceps tendon with atte nuation and longitudinal split tearing of the retracted tendon at and below the level of the intertubercular groove. 3. Moderate acromioclavicular osteoarthritis. 4. Mild subacromial/subdeltoid bursitis.
== END 2025-02-23 12:43 | disposition home or self-care (01) ==
PROVIDERS: PCP Family Medicine; Visit Provider Orthopaedic Surgery
DX: S46.811A Strain of other muscles, fascia and tendons at shoulder and upper arm level, right arm, initial encounter (principal); M19.011 Primary osteoarthritis, right shoulder; M75.51 Bursitis of right shoulder
CPT/HCPCS: 73221

== ENCOUNTER 2025-03-27 11:09 | Outpatient (CLI) | payer BC, SELFPAY ==
--- NOTE | ~2025-03-27 | US_ITS ---
LEFT LOWER EXTREMITY VENOUS DUPLEX Clinical History: Z86.718 - Personal history of other venous thrombosis and... COMPARISON: None TECHNIQUE: Grayscale, color, duplex/spectral Doppler sonography left leg FINDINGS: Left leg common femoral, femoral, popliteal, and calf veins compressible and color Doppler patent. Normal augmentation with distal compression. No internal echoes. Cooper's cyst versus muscle strain/fluid IMPRESSION: 1. No left leg DVT. 2. Cooper's cyst versus proximal calf muscle strain/fluid. Reviewed, dictated and finalized at location R.
== END 2025-03-27 11:10 | disposition home or self-care (01) ==
LOC: GOSHIMG 11:09
PROVIDERS: PCP Internal Medicine Hematology & Oncology; Visit Provider Family Medicine
DX: Z86.718 Personal history of other venous thrombosis and embolism (principal); M79.89 Other specified soft tissue disorders; M79.662 Pain in left lower leg; M71.22 Synovial cyst of popliteal space [Baker], left knee; S86.912A Strain of unspecified muscle(s) and tendon(s) at lower leg level, left leg, initial encounter; X58.XXXA Exposure to other specified factors, initial encounter
CPT/HCPCS: 93971